=== PATIENT | female | born 1950 | race Caucasian/White ===

== ENCOUNTER 2021-01-24 08:54 | Outpatient (REF) | payer MEDICARE, SELFPAY ==
--- NOTE | ~2021-01-24 | XR_ITS ---
EXAMINATION: AP BILATERAL KNEE AND LEFT KNEE CLINICAL INFORMATION: Pain left knee. COMPARISON: None. TECHNIQUE: AP bilateral knee standing. Left knee 2 views. FINDINGS: AP Bilateral Knee: There is moderate reduction in medial compartment joint space both knees with periarticular spurring. The lateral compartment joint space is maintained normal. No loose bodies, fracture or bony erosive changes seen. Left Knee: There is loss of patellofemoral compartment joint space with moderate periarticular spurring. There is mild suprapatellar joint effusion. XR/XR knee standing BI IMPRESSION: [id number] degenerative changes in the tricompartments left knee with minimal suprapatellar joint effusion. No visible acute fracture, dislocation or subluxation seen.
--- NOTE | ~2021-01-24 | XR_ITS ---
EXAMINATION: AP BILATERAL KNEE AND LEFT KNEE CLINICAL INFORMATION: Pain left knee. COMPARISON: None. TECHNIQUE: AP bilateral knee standing. Left knee 2 views. FINDINGS: AP Bilateral Knee: There is moderate reduction in medial compartment joint space both knees with periarticular spurring. The lateral compartment joint space is maintained normal. No loose bodies, fracture or bony erosive changes seen. Left Knee: There is loss of patellofemoral compartment joint space with moderate periarticular spurring. There is mild suprapatellar joint effusion. XR/XR knee LT 2V IMPRESSION: [id number] degenerative changes in the tricompartments left knee with minimal suprapatellar joint effusion. No visible acute fracture, dislocation or subluxation seen.
== END 2021-01-24 08:55 | disposition home or self-care (01) ==
LOC: HO.HOSX 08:54
PROVIDERS: Visit Provider Orthopaedic Surgery
DX: M17.12 Unilateral primary osteoarthritis, left knee (principal)
CPT/HCPCS: 20610; 73560; 73565; J1040

== ENCOUNTER → 2021-07-24 11:25 | Outpatient (BNVA) | payer MEDICARE, BC, SELFPAY | PROVIDERS: PCP Hospitalist; Visit Provider Orthopaedic Surgery | DX: M17.0 Bilateral primary osteoarthritis of knee (principal) | CPT/HCPCS: 20610; 99212; J1100 ==

== ENCOUNTER 2021-12-28 | Outpatient (REF) | payer MEDICARE, BC, SELFPAY ==
[2021-12-28 12:13] VITALS: BP 116/62; PULSE 62; RESP 16; O2SAT 98; BMI 39.2
--- NOTE | 2021-12-28 12:51 | HO.ANESPROP2 ---
HPI - Anesthesia Eval Consult details Narrative: Rescheduled after cardiology w/u 71yo F for Left Knee Replacement Total PCP clearance pending labs Significant lower extremity edema. Patient says this is chronic but some days are worse than others. No edema noted on physical exam by Orthopedics or PCP. Reviewed with Dr Anderson heath for eval DOSErlin Lucia dairy bacteriologist notified. [facility] Active Problems Active Problems: All Active Problems (Updated 12/28/21 @ 12:44 by Dorita Mo RN) Obesity (BMI 30-39.9) (Acute) Primary osteoarthritis of left knee (Acute) Pre-operative clearance (Acute) Past Medical History Medical History Arm fracture, left Arthritis Edema of both lower extremities Ganglion cyst Hypertension Left knee pain Family History Family History Father Congestive heart failure Family history of problems with anesthesia: No Surgical History Surgical History Hx of colonoscopy Hx of wisdom tooth extraction History of Problems with Anesthesia: No Social History Social History Housing: House Are you a primary direct care specialist to a significant other at home: No Do you presently have visiting nurse or other home services: No Alcohol intake: current Alcohol intake frequency: holidays/special occasions only Alcohol type: beer Patient Tobacco Use Status: Never used Tobacco e-Cigarette/Vaping Use: Never Used service: No Current occupational status: retired Cognitive needs: Yes Hearing needs: No Vision needs: Yes Narrative Narrative: No recent illness No CP/SOB with physical activity, limited Meds Allergies Allergy/AdvReac Type Severity Reaction Status Date / Time No Known Allergies Allergy Verified 01/04/22 09:47 Home Medications Medication Instructions Recorded Confirmed Last Taken Type carvedilol 12.5 mg tablet 12.5 mg PO BID 08/24/20 12/28/21 Unknown History hydrochlorothiazide 25 mg tablet 25 mg PO DAILY 08/24/20 12/28/21 Unknown History lisinopril 20 mg tablet 20 mg PO BID 08/24/20 12/28/21 Unknown History Exam Exam Date and Time: December 28, 2021 1251 Height,Weight and Vital Signs: Height 5 ft 7 in Weight 113.7 kg Last Vital Signs Pulse 62 12/28/21 12:13 Resp 16 12/28/21 12:13 BP 116/62 12/28/21 12:13 Pulse Ox 98 12/28/21 12:13 O2 Del Method 12/28/21 12:13 Pertinent Lab Results Pertinent Lab Results: Lab Results 12/28/21 12/28/21 12/28/21 Range/Units 12:30 13:15 13:15 WBC 8.2 (4.8-10.8) X10*3/uL RBC 4.50 (4.20-5.50) X10*6/uL Hgb 13.9 (12.0-16.0) g/dl Hct 42.5 (37.0-47.0) % MCV 94.4 (80.0-98.0) fL MCH 30.9 (27.0-33.0) pg MCHC 32.7 (31.0-35.0) g/dl RDW 13.3 (11.0-16.0) % Plt Count 267 (160-400) X10*3/uL MPV 10.8 (9.4-12.3) fL Immature Gran % (Auto) 0.2 (0.0-0.4) % Neut % (Auto) 68.1 (45-73) % Lymph % (Auto) 23.8 (20-40) % [place] % (Auto) 6.3 (2-11) % Eos % (Auto) 1.1 (0-4) % Baso % (Auto) 0.5 (0-2) % Lymph # (Auto) 2.0 (1.2-4.9) X10*3/uL [place] # (Auto) 0.5 (0.1-1.2) X10*3/uL Eos # (Auto) 0.1 (0.0-0.4) X10*3/uL Baso # (Auto) 0.0 (0.0-0.2) X10*3/uL Abs Immat Gran (auto) 0.02 (0.00-0.03) X10*3/uL Absolute Neuts (auto) 5.6 (2.0-8.3) x10*3/uL Absolute Nucleated RBC 0.000 (0.0-0.012) X10*3/uL Nucleated RBC % (auto) 0.0 (0.0-0.2) /100WBC Sodium 140 (135-145) mmol/L Potassium 4.5 (3.3-5.1) mmol/L Chloride 104 (96-108) mmol/L Carbon Dioxide 26 (22-29) mmol/L Anion Gap 15 (12-20) BUN 27 H (9-16) mg/dL Creatinine 1.98 H (0.5-1.4) mg/dL Estim Creat Clear Calc 34.9 Estimated GFR 25 Random Glucose 92 (60-115) mg/dL Calcium 10.3 H (8.4-10.2) mg/dL Nasal Screen MRSA (PCR) NEGATIVE (Negative) Nasal S. aureus Screen NEGATIVE (Negative) Nasal MRSA/S.aureus Interp SEE NOTE Blood Type Antibody Screen 12/28/21 Range/Units 13:15 WBC (4.8-10.8) X10*3/uL RBC (4.20-5.50) X10*6/uL Hgb (12.0-16.0) g/dl Hct (37.0-47.0) % MCV (80.0-98.0) fL MCH (27.0-33.0) pg MCHC (31.0-35.0) g/dl RDW (11.0-16.0) % Plt Count (160-400) X10*3/uL MPV (9.4-12.3) fL Immature Gran % (Auto) (0.0-0.4) % Neut % (Auto) (45-73) % Lymph % (Auto) (20-40) % [place]leigh % (Auto) (2-11) % Eos % (Auto) (0-4) % Baso % (Auto) (0-2) % Lymph # (Auto) (1.2-4.9) X10*3/uL [place] # (Auto) (0.1-1.2) X10*3/uL Eos # (Auto) (0.0-0.4) X10*3/uL Baso # (Auto) (0.0-0.2) X10*3/uL Abs Immat Gran (auto) (0.00-0.03) X10*3/uL Absolute Neuts (auto) (2.0-8.3) x10*3/uL Absolute Nucleated RBC (0.0-0.012) X10*3/uL Nucleated RBC % (auto) (0.0-0.2) /100WBC Sodium (135-145) mmol/L Potassium (3.3-5.1) mmol/L Chloride (96-108) mmol/L Carbon Dioxide (22-29) mmol/L Anion Gap (12-20) BUN (9-16) mg/dL Creatinine (0.5-1.4) mg/dL Estim Creat Clear Calc Estimated GFR Random Glucose (60-115) mg/dL Calcium (8.4-10.2) mg/dL Nasal Screen MRSA (PCR) (Negative) Nasal S. aureus Screen (Negative) Nasal MRSA/S.aureus Interp Blood Type AB Negative Antibody Screen NEGATIVE Laboratory Tests 01/04/22 08:30 Sodium 138 Potassium 4.6 Chloride 103 BUN 33 H Creatinine 1.32 Narrative Narrative: EKG 12/2021 SB with SA @ 56 Otherwise normal Airway Mallampati Class: II TM Dist: >3cm Neck ROM: Full Loose/Missing/Broken Teeth: Yes (molars missing) Heart: RRR Lungs: CTAB Assessment and Plan Assessment Anesthesia Assessment: Anesthesia Plan Discussed and PAT Visit Final Anesthetic Review Family History of Problems with Anesthesia: No History of Problems with Anesthesia: No
[2021-12-28 13:57] LABS: Basophils Percent Auto 0.5 % (0-2); Eosinophils Absolute Auto 0.1 X10*3/uL (0.0-0.4); Eosinophils Percent Auto 1.1 % (0-4); Hematocrit 42.5 % (37.0-47.0); Hemoglobin 13.9 g/dl (12.0-16.0); Imm Gran Abs Auto 0.02 X10*3/uL (0.00-0.03); Imm Gran Pct Auto 0.2 % (0.0-0.4); Lymphocytes Percent Auto 23.8 % (20-40); MANUAL DIFF FLAG NO; Mean Corpuscular HGB Conc 32.7 g/dl (31.0-35.0); Mean Corpuscular Hemoglobin 30.9 pg (27.0-33.0); Mean Corpuscular Volume 94.4 fL (80.0-98.0); Mean Platelet Volume 10.8 fL (9.4-12.3); Monocytes Absolute Auto 0.5 X10*3/uL (0.1-1.2); Monocytes Percent Auto 6.3 % (2-11); Neutrophils Absolute Auto 5.6 x10*3/uL (2.0-8.3); Neutrophils Percent Auto 68.1 % (45-73); Platelet Count 267 X10*3/uL (160-400); Red Cell Distribution Width 13.3 % (11.0-16.0); White Blood Count 8.2 X10*3/uL (4.8-10.8)
[2021-12-28 14:22] LABS: Anion Gap 15 (12-20); Blood Urea Nitrogen 27 mg/dL (9-16); Calcium 10.3 mg/dL (8.4-10.2); Carbon Dioxide 26 mmol/L (22-29); Chloride 104 mmol/L (96-108); Creatinine Clr Calc Pharmacy 34.9; Estimated Glomerular Filt Rate 25; Glucose Random 92 mg/dL (60-115); Potassium 4.5 mmol/L (3.3-5.1); Sodium 140 mmol/L (135-145)
[2021-12-28 14:48] LABS: MRSA Nasal PCR NEGATIVE (Negative); SA Nasal PCR NEGATIVE (Negative)
== END 2021-12-28 00:01 | disposition home or self-care (01) ==
LOC: HO.PAT
PROVIDERS: Physician Assistant; PCP Hospitalist; Visit Provider Orthopaedic Surgery
DX: Z01.818 Encounter for other preprocedural examination (principal); M17.12 Unilateral primary osteoarthritis, left knee
CPT/HCPCS: 36415; 80048; 85025; 86850; 86900; 86901; 87640; 87641

== ENCOUNTER 2022-01-04 08:26 | Outpatient (REF) | payer MEDICARE, BC, SELFPAY ==
[2022-01-04 12:06] LABS: Anion Gap 14 (12-20); Blood Urea Nitrogen 33 mg/dL (9-16); Calcium 10.1 mg/dL (8.4-10.2); Carbon Dioxide 26 mmol/L (22-29); Chloride 103 mmol/L (96-108); Estimated Glomerular Filt Rate 40; Glucose Random 102 mg/dL (60-115); Potassium 4.6 mmol/L (3.3-5.1); Sodium 138 mmol/L (135-145)
== END 2022-01-04 08:27 | disposition home or self-care (01) ==
LOC: HO.WFDLDS 08:26
PROVIDERS: Visit Provider Hospitalist
DX: Z01.818 Encounter for other preprocedural examination (principal); M17.12 Unilateral primary osteoarthritis, left knee; R79.89 Other specified abnormal findings of blood chemistry
CPT/HCPCS: 36415; 80048; 99212

== ENCOUNTER → 2022-01-24 08:50 | Outpatient (BNVA) | payer MEDICARE, BC, SELFPAY | PROVIDERS: PCP Hospitalist; Visit Provider Internal Medicine Cardiovascular Disease | DX: Z01.810 Encounter for preprocedural cardiovascular examination (principal); I10 Essential (primary) hypertension | CPT/HCPCS: 99202 ==

== ENCOUNTER → 2022-01-25 10:17 | Outpatient (REF) | payer MEDICARE, BC, SELFPAY ==
--- NOTE | 2022-01-25 10:21 | CA_ITS ---
Transthoracic Echocardiogram Patient (Last, First, Middle): April Cunningham M Gender: Female Date of : 1950 Age: 71 Procedure Date: 01/25/2022 Procedure Type: Transthoracic Echocardiogram Location: OP Height: 170.18 cm Weight: 113.4 kg BSA: 2.22 m2 Heart Rate: bpm BP: 110 / 70 mmHg Linoleum Mechanic: SONA Referring MD: Drake Hutchinson MD Airplane Patrol Pilot: Drake Hutchinson MD Symptoms: Z01.810 - Encounter for preprocedural cardiovascular examination Study Quality: Fair ECG Rhythm: Sinus Conclusions: - 1. Normal LV systolic function with grade 1 diastolic dysfunction 2. Normal cardiac valvular Doppler 3. No gross pericardial effusion Findings Left Ventricle Normal left ventricular size, thickness, and systolic function. The visually estimated ejection fraction is between 60-65%. Regional wall motion abnormalities can not be excluded due to suboptimal endocardial definition. Spectral Doppler is indicative of an impaired relaxation filling pattern. E/E prime ratio is <8, consistent with normal filling pressures. Evidence suggests grade I (mild) diastolic dysfunction. Right Ventricle Normal right ventricular cavity size. There is normal right ventricular systolic function. Atria The left atrium is normal in size. Interatrial shunt cannot be excluded. The right atrium was not well visualized. Aortic Valve The aortic valve structure and function is likely normal. There is no aortic valve stenosis. There is no aortic valve regurgitation. Mitral Valve There is mild anterior mitral leaflet thickening. There is mild mitral annular calcification. There is trace mitral valve regurgitation. There is no mitral valve stenosis. Pulmonic Valve The pulmonic valve was not well visualized. Tricuspid Valve The tricuspid valve was not well visualized. Tricuspid regurgitation envelope is inadequate for calculation of right ventricular systolic pressure. Normal right atrial pressure. Great Vessels All visible segments of the aorta are normal in size. The pulmonary artery was not well visualized. Venous The inferior vena cava is normal in size and collapses greater than 50% with inspiration. Pericardium/Pleural There is no evidence of pericardial effusion. Prior Study Comparison No prior study available for comparison. Measurements 2D Linear Measurements IVSd: 1.03 0.6-0.9/0.6-1.0 cm LVIDd: 4.07 3.9-5.3/4.2-5.9 cm LVIDd Index: 1.83 2.4-3.2/2.2-3.1 cm/m2 LVIDs: 2.61 2.0-3.6 cm LVPWd: 1.13 0.7-1.1 cm LA Diam: 2.90 2.7-3.8/3.0-4.0 cm LAIDs Index: 1.31 1.5-2.3 cm/m2 LV Mass: 181.36 67-162/88-224 g LV Mass Index: 81.69 43-95/49-115 g/m2 LVOT Diam: 2.10 3.0+(-)1.3 cm 2D Systolic Function EF 4C: 57.90 >55% EF 2C: 61.70 >55% EF BiP: 60.10 >55% Mitral Valve MV Pk E: 0.58 MV PK A: 0.82 MV Decel Time: 369.00 E/A: 0.70 E'Lateral: 9.90 E'Medial: 6.85 E/E' Med: 8.50 E/E' Lat: 5.90 PHT: 108.00 MVA PHT: 2.04 Decel [place]: 1.58 Aortic Valve AoV Pk Genaro: 1.29 AoV Mn Genaro: 0.85 AoV VTI: 0.33 AoV Pk Grad: 7.00 Aov Mn Grad: 3.00 TAQUERIA Cont.VTI: 2.59 LVOT LVOT Pk Genaro: 1.14 LVOT Mn Genaro: 0.65 LVOT VTI: 0.24 LVOT Pk Grad: 5.00 LVOT Mn Grad: 2.00 LVOT Diam: 2.10 LVOT Area: 3.46 Diastolic Function MV Pk E: 0.58 MV Pk A: 0.82 E/A: 0.70 E'Medial: 6.85 E/E' Med: 8.50 E' Laterial: 9.90 E/E' Lat: 5.90 Right Ventricle TAPSE (mm): 26.70 TVS' Genaro: 13.50 Tricuspid Valve RA Press: 3.00 Great Vessels Aorta Sinus of Valsalva: 3.28 2.0-3.[address] [place]: 3.12 1.7-3.4 cm Ao Asc: 3.20 2.1-3.4 cm Updated in Other Vendor System with Status of Final Drake Hutchinson MD electronically signed on 01/25/2022 2:51:27 PM with status of Final
== END ==
LOC: HO.CARD 10:17
PROVIDERS: PCP Hospitalist; Visit Provider Internal Medicine Cardiovascular Disease
DX: Z01.810 Encounter for preprocedural cardiovascular examination (principal)
CPT/HCPCS: 93306

== ENCOUNTER → 2022-01-29 14:25 | Outpatient (BNVA) | payer MEDICARE, BC, SELFPAY | PROVIDERS: PCP Hospitalist; Visit Provider Physician Assistant | DX: M54.16 Radiculopathy, lumbar region (principal); M17.12 Unilateral primary osteoarthritis, left knee | CPT/HCPCS: 99212 ==

== ENCOUNTER → 2022-01-30 09:38 | Outpatient (REF) | payer MEDICARE, BC, SELFPAY ==
--- NOTE | ~2022-01-30 | NM_ITS ---
Lexiscan Myocardial perfusion study Indication: Preoperative cardiovascular evaluation Technique: The patient was brought in for a Lexiscan perfusion study on 01/30/2022 and was injected 0.4 mg of Lexiscan intravenously. Within a minute of this injection 40 mCi of sestamibi was given intravenously. Images were obtained using the SPECT gamma camera interlaced with the gating device. Images were obtained in supine position. Resting perfusion study was performed on 01/31/2022. Patient was administered 40 mCi of sestamibi intravenously at rest. Images were then obtained in supine position. Total DLP 134mGy-cm. Images were processed with the software and compared side to side in short axis, horizontal long axis and vertical long axis views. Findings: Raw acquisition reviewed. The stress perfusion study showed no significant perfusion abnormality. Both uncorrected as well as CT attenuation corrected images were reviewed. The gated study shows normal LV systolic function with calculated LVEF of 63%. LV cavity is normal in size. The gated study shows normal wall thickening and contraction of segments. Resting study shows no significant perfusion abnormality. Gating at rest reveals normal wall motion with ejection fraction at 73%. The findings are consistent with no reversible or fixed perfusion abnormality. NM/NM eliezer perf SPECT rest & str Impression: 1. Myocardial perfusion imaging study shows normal myocardial perfusion. No evidence of any ischemia or infarction. 2. Gated LVEF is 63% during stress and 73% during rest. 3. Transient ischemic dilatation not present. EKG component of the test reported separately.
--- NOTE | 2022-01-30 09:41 | CA_ITS ---
Acquisition Time: 2022-01-30 09:55:15 Total Exercise Time: 00:02:00 Test Indications: Z01.810 PRE OP Medications: SEE H Protocol: LEXISCAN Max HR: 094 BPM 62% of Pred: 151 BPM Max BP: 128/070 mmHG Max Work Load: 1.0 METS Pharmacological stress test with Lexiscan injection, while sitting and kicking her legs, without anginal symptoms, without arrythmia, with normotensive response to injection, with nondiagnostic EKG for ischemia. In recovery she reported lightheadedness that was treated with Aminophylline 75mg IVP to reverse Lexiscan with resolution of symptom. Nuclear images pending. Test reviewed with Dr Pradhan. Referred By: Drake Hutchinson Overread By: MARITO FARIAS
== END ==
LOC: HO.CARD 09:38
PROVIDERS: Visit Provider Internal Medicine Cardiovascular Disease
DX: Z01.810 Encounter for preprocedural cardiovascular examination (principal)
CPT/HCPCS: 78452; 93017; A9500; J0280; J2785

== ENCOUNTER → 2022-02-07 13:43 | Outpatient (BNVA) | payer MEDICARE, BC, SELFPAY | PROVIDERS: PCP Hospitalist; Referring Provider Hospitalist; Visit Provider Internal Medicine Cardiovascular Disease | DX: Z01.810 Encounter for preprocedural cardiovascular examination (principal); I10 Essential (primary) hypertension | CPT/HCPCS: 99212 ==

== ENCOUNTER 2022-02-20 10:00 | Outpatient (RCR) | payer MEDICARE, BC, SELFPAY | END 2022-03-13 09:31 | disposition home or self-care (01) | LOC: HO.PTWFD 10:00 | PROVIDERS: PCP Hospitalist; Visit Provider Orthopaedic Surgery | DX: M17.12 Unilateral primary osteoarthritis, left knee (principal) | CPT/HCPCS: 97110; 97116; 97140; 97161; 97530; 97535 ==

== ENCOUNTER 2022-02-22 08:37 | Outpatient (REF) | payer MEDICARE, BC, SELFPAY ==
--- NOTE | ~2022-02-22 | XR_ITS ---
EXAMINATION: XR STANDING AP KNEES XR KNEE, LEFT CLINICAL INFORMATION: M25.562 - Pain in left knee COMPARISON: Standing AP knees and left knee radiographs 01/24/2021. TECHNIQUE: Standing AP view of both knees is performed. Left knee is also imaged in lateral and axial patella views. FINDINGS: Right: There are osteoarthritic changes medial and lateral knee joint compartments with joint narrowing and osteophytes from the femoral condyles plateau. No erosive changes or chondrocalcinosis. No destructive process. Borderline progression since prior imaging. Left: Tricompartment osteoarthritis, greatest medial knee joint compartment with marked medial knee joint narrowing and subchondral sclerosis, osteophytes, and secondary genu varus. No visible erosive change or definite chondrocalcinosis. There is some trace thickening suprapatellar bursa. No overt effusion. Hoffa's fat pad appears normal. Mild lateral tilting patella. No lateralization patella. Mild progression since prior imaging. XR/XR knee standing BI IMPRESSION: Right: -Osteoarthritis medial lateral compartments. No erosive changes. Left: -Tricompartment osteoarthritis, severe medial compartment. Secondary genu varus -Mild lateral patellar tilting.
--- NOTE | ~2022-02-22 | XR_ITS ---
EXAMINATION: XR STANDING AP KNEES XR KNEE, LEFT CLINICAL INFORMATION: M25.562 - Pain in left knee COMPARISON: Standing AP knees and left knee radiographs 01/24/2021. TECHNIQUE: Standing AP view of both knees is performed. Left knee is also imaged in lateral and axial patella views. FINDINGS: Right: There are osteoarthritic changes medial and lateral knee joint compartments with joint narrowing and osteophytes from the femoral condyles plateau. No erosive changes or chondrocalcinosis. No destructive process. Borderline progression since prior imaging. Left: Tricompartment osteoarthritis, greatest medial knee joint compartment with marked medial knee joint narrowing and subchondral sclerosis, osteophytes, and secondary genu varus. No visible erosive change or definite chondrocalcinosis. There is some trace thickening suprapatellar bursa. No overt effusion. Hoffa's fat pad appears normal. Mild lateral tilting patella. No lateralization patella. Mild progression since prior imaging. XR/XR knee LT 2V IMPRESSION: Right: -Osteoarthritis medial lateral compartments. No erosive changes. Left: -Tricompartment osteoarthritis, severe medial compartment. Secondary genu varus -Mild lateral patellar tilting.
== END 2022-02-22 08:38 | disposition home or self-care (01) ==
LOC: HO.HOSX 08:37
PROVIDERS: Visit Provider Physician Assistant
DX: M17.12 Unilateral primary osteoarthritis, left knee (principal); M25.561 Pain in right knee
CPT/HCPCS: 73560; 73565; 99212

== ENCOUNTER 2022-02-27 07:49 | Inpatient (IN) | payer MEDICARE, SELFPAY ==
[2022-02-16 13:52] VITALS: BP 137/68; PULSE 60; RESP 16; O2SAT 100; BMI 38.5
[2022-02-16 15:37] LABS: Hematocrit 42.8 % (37.0-47.0); Hemoglobin 14.1 g/dl (12.0-16.0); Mean Corpuscular HGB Conc 32.9 g/dl (31.0-35.0); Mean Corpuscular Hemoglobin 30.7 pg (27.0-33.0); Mean Platelet Volume 10.7 fL (9.4-12.3); Platelet Count 248 X10*3/uL (160-400); Red Cell Distribution Width 12.5 % (11.0-16.0); White Blood Count 9.2 X10*3/uL (4.8-10.8)
[2022-02-16 16:08] LABS: MRSA Nasal PCR NEGATIVE (Negative); SA Nasal PCR NEGATIVE (Negative)
[2022-02-16 16:15] LABS: Anion Gap 19 (12-20); Blood Urea Nitrogen 34 mg/dL (9-16); Calcium 10.6 mg/dL (8.4-10.2); Carbon Dioxide 23 mmol/L (22-29); Chloride 103 mmol/L (96-108); Creatinine Clr Calc Pharmacy 47.4; Estimated Glomerular Filt Rate 36; Glucose Random 94 mg/dL (60-115); Potassium 4.8 mmol/L (3.3-5.1); Sodium 140 mmol/L (135-145)
--- NOTE | 2022-02-22 13:47 | HO.ANESPROP2 ---
Documented by User: Kindra Singer NP 02/22/22 14:03 HPI - Anesthesia Eval Consult details Narrative: 71yo F for Left Knee Replacement Total Cx'd 01/2022 r/t to LE swelling. PCP defers to cardiology for clearance. Cleared by cardiology [facility] Active Problems Active Problems: All Active Problems (Updated 02/16/22 @ 14:22 by Dorita Mo, RN) Obesity (BMI 30-39.9) (Acute) Primary osteoarthritis of left knee (Acute) Pre-operative clearance (Acute) Elevated serum creatinine (Acute) Preoperative cardiovascular examination (Acute) Lumbar radiculopathy (Acute) Hypertension (Acute) Past Medical History Medical History Arm fracture, left Arthritis Dislocated shoulder Edema of both lower extremities Ganglion cyst Hypertension Left knee pain Family History Family History Father Congestive heart failure Family history of problems with anesthesia: No Surgical History Surgical History Hx of colonoscopy Hx of wisdom tooth extraction History of Problems with Anesthesia: No Social History Social History Household Members Other:: son age 34 Housing: House Are you a primary career manager to a significant other at home: No Do you presently have visiting nurse or other home services: No Alcohol intake: current Alcohol intake frequency: holidays/special occasions only Alcohol type: beer Patient Tobacco Use Status: Never used Tobacco e-Cigarette/Vaping Use: Never Used Use of substances other than those prescribed or required for medical reasons: No Have you been hit, kicked, punched, or otherwise hurt by someone within the past year? If so, by whom?: No Spiritual Healthcare Practices: none Baptism Healthcare Practices: none Cultural Healthcare Practices: none Are you DNR?: No Advance Directives: No Advance Directives Information Provided: Yes Advance Directives on File: No Recently lost weight without trying: No Nutrition Risks: No Nutritional Risk service: No Current occupational status: retired Cognitive needs: Yes Hearing needs: No Vision needs: Yes Meds Allergies Allergy/AdvReac Type Severity Reaction Status Date / Time No Known Allergies Allergy Verified 02/27/22 07:57 Home Medications Medication Instructions Recorded Confirmed Last Taken Type carvedilol 12.5 mg tablet 12.5 mg PO BID 08/24/20 02/27/22 02/27/22 History hydrochlorothiazide 25 mg tablet 25 mg PO DAILY 08/24/20 02/22/22 Unknown History lisinopril 20 mg tablet 20 mg PO BID 08/24/20 02/22/22 Unknown History tramadol 50 mg tablet 25 mg PO BEDTIME PRN Pain 02/07/22 02/22/22 Unknown History Exam Exam Date and Time: February 22, 2022 1347 Height,Weight and Vital Signs: Height 5 ft 7 in Weight 111.584 kg Last Vital Signs Pulse 60 02/16/22 13:52 Resp 16 02/16/22 13:52 BP 137/68 02/16/22 13:52 Pulse Ox 100 02/16/22 13:52 O2 Del Method 02/16/22 13:52 Pertinent Lab Results Pertinent Lab Results: Laboratory Tests 02/16/22 02/16/22 02/16/22 14:23 14:50 15:01 WBC 9.2 RBC 4.60 Hgb 14.1 Hct 42.8 MCV 93.0 MCH 30.7 MCHC 32.9 RDW 12.5 Plt Count 248 MPV 10.7 Absolute Nucleated RBC 0.000 Nucleated RBC % (auto) 0.0 Sodium Potassium Chloride Carbon Dioxide Anion Gap BUN Creatinine Estim Creat Clear Calc Estimated GFR Random Glucose Calcium Nasal Screen MRSA (PCR) NEGATIVE Nasal S. aureus Screen NEGATIVE Nasal MRSA/S.aureus Interp SEE NOTE Blood Type AB Negative Antibody Screen NEGATIVE 02/16/22 15:01 WBC RBC Hgb Hct MCV MCH MCHC RDW Plt Count MPV Absolute Nucleated RBC Nucleated RBC % (auto) Sodium 140 Potassium 4.8 Chloride 103 Carbon Dioxide 23 Anion Gap 19 BUN 34 H Creatinine 1.44 H Estim Creat Clear Calc 47.4 Estimated GFR 36 Random Glucose 94 Calcium 10.6 H Nasal Screen MRSA (PCR) Nasal S. aureus Screen Nasal MRSA/S.aureus Interp Blood Type Antibody Screen Narrative Narrative: EKG 12/2021 SB with SA @ 56 Otherwise normal Assessment and Plan Assessment Anesthesia Assessment: Chart Reviewed Final Anesthetic Review Family History of Problems with Anesthesia: No History of Problems with Anesthesia: No Documented by User: Babatunde Lopez MD 02/27/22 11:23 PMFSH Past Medical History Medical History Arm fracture, left Arthritis Dislocated shoulder Edema of both lower extremities Ganglion cyst Hypertension Left knee pain Family History Family History Father Congestive heart failure Surgical History Surgical History Hx of colonoscopy Hx of wisdom tooth extraction Social History Social History Household Members Other:: son age 34 Housing: House Are you a primary career manager to a significant other at home: No Do you presently have visiting nurse or other home services: No Alcohol intake: current Alcohol intake frequency: holidays/special occasions only Alcohol type: beer Patient Tobacco Use Status: Never used Tobacco e-Cigarette/Vaping Use: Never Used Use of substances other than those prescribed or required for medical reasons: No Have you been hit, kicked, punched, or otherwise hurt by someone within the past year? If so, by whom?: No Spiritual Healthcare Practices: none Baptism Healthcare Practices: none Cultural Healthcare Practices: none Are you DNR?: No Advance Directives: No Advance Directives Information Provided: Yes Advance Directives on File: No Recently lost weight without trying: No Nutrition Risks: No Nutritional Risk service: No Current occupational status: retired Cognitive needs: Yes Hearing needs: No Vision needs: Yes Meds Allergies Allergy/AdvReac Type Severity Reaction Status Date / Time No Known Allergies Allergy Verified 02/27/22 07:57 Home Medications Medication Instructions Recorded Confirmed Last Taken Type carvedilol 12.5 mg tablet 12.5 mg PO BID 08/24/20 02/27/22 02/27/22 History hydrochlorothiazide 25 mg tablet 25 mg PO DAILY 08/24/20 02/22/22 Unknown History lisinopril 20 mg tablet 20 mg PO BID 08/24/20 02/22/22 Unknown History tramadol 50 mg tablet 25 mg PO BEDTIME PRN Pain 02/07/22 02/22/22 Unknown History Exam Airway Mallampati Class: II TM Dist: >3cm Neck ROM: Full Loose/Missing/Broken Teeth: Yes Assessment and Plan Assessment Anesthesia Assessment: Anesthesia Plan Discussed Final Anesthetic Review NPO: Yes ASA Class: III Final Preanesthetic Review: No Changes in Pt Med Stat, Meds/Allgs Chart Reviewed, Consent Obtained/Reviewed and Anes Risks/Benef Reviewed Patient Risk: Intermediate Procedure Risk: Intermediate Anesthetic Plan Anesthetic Plan: MAC:, Spinal and Regional Block Disposition: Standard PACU
[2022-02-27] VITALS (18 sets, daily range): BP systolic 88–145; BP diastolic 38–73; PULSE 42–69; RESP 16–20; TEMP 36–36.9; O2SAT 95–100
--- NOTE | ~2022-02-27 | XR_ITS ---
EXAMINATION: XR KNEE, LEFT CLINICAL INFORMATION: Status post total knee arthroplasty COMPARISON: 02/22/2022 TECHNIQUE: Two views of the left knee. FINDINGS: Postoperative changes from total knee arthroplasty. Hardware components appear well-seated and in anatomic alignment. There is associated soft tissue swelling, soft tissue gas, and anterior skin reyna. No acute fracture is seen. XR/XR knee LT 2V IMPRESSION: Status post total knee arthroplasty with expected postoperative changes.
--- NOTE | 2022-02-27 07:55 | PHA.MEDREC ---
Pharmacy Consult ? Medication Reconciliation Pharmacy has completed the medication reconciliation. Reviewed med rec done by nursing
[2022-02-27 08:07] LABS: COVID-19 Test Negative (Negative); IDNOW Serial# 16C4AD1C
[2022-02-27] MEDS: Lactated Ringers 1,000 ML 100 ML IVCONT ×3 (08:08→20:46)
[2022-02-27 08:58] LABS: Hemoglobin 13.4 g/dl (12.0-16.0)
--- NOTE | 2022-02-27 09:39 | MHC.SHP ---
Pre-Procedural Eval Section A Date of Service: 02/27/22 The patient is an INPATIENT: No Changes since office visit: Yes Patient answered all questions; No Cold of Flu in the past 2 weeks, No New Medical Problems and No Changes in Medication The History & Physical has been completed within 30 days and I have reviewed it.: Yes Section B Chief Complaint: LT TKA Allergies: Allergies Allergy/AdvReac Type Severity Reaction Status Date / Time No Known Allergies Allergy Verified 02/27/22 07:57 Plan I have reviewed the history and physical and performed a pertinent physical examination on my patient. No changes have occurred unless specified.
--- NOTE | 2022-02-27 11:38 | P.BOP_ITS ---
Brief Operative Note Date of Service: 02/27/22 Pre-op diagnosis: Left knee OA Post-op diagnosis: same Procedure: Left TKA Implants: [employer]athal[employer] cemented posterior stabilized 08/11/18 Surgeon: Sukh Jade MD Anesthesia: regional and spinal Was an Human Resources Benefits Assistant used for this Procedure?: Yes Human Resources Benefits Assistant: Jeronimo Molina Estimated blood loss (mL): 250 Tourniquet time (min): 0 IV fluids (mL): 1,000 Pathology: other Condition: stable Disposition: PACU
--- NOTE | 2022-02-27 11:39 | W.PM.OPN ---
Operative Note Operative Note Date of Service: 02/27/22 Narrative: Date of Service: 02/27/22 Pre-op diagnosis: Left knee OA Post-op diagnosis: same Procedure: Left TKA Implants: Valier Triathalon cemented posterior stabilized 08/11/TS/32a Surgeon: Sukh Jade MD Anesthesia: regional and spinal Was an Charge Master Specialist used for this Procedure?: Yes Charge Master Specialist: Jeronimo Molina Estimated blood loss (mL): 250 Tourniquet time (min): 0 IV fluids (mL): 1,000 Pathology: other Condition: stable Disposition: PACU Procedure in detail: The patient was brought to the operating room and prepped and draped in standard sterile fashion. A time-out was called to identify proper site proper procedure proper surgeon and IV antibiotics were administered. 1 g of IV tranexamic acid was administered. I began by making a midline incision to the retinaculum and performed a medial parapatellar arthrotomy. The patella was translated laterally and the knee was flexed up. There was severe eburnation of the medial compartment and varus alignement. I performed a small medial peel and resected the infrapatellar fat pad. Villas's line was then used to drill my intramedullary femoral guide and my distal femur cut of 10mm was made in 5 degrees of valgus while protecting the soft tissues. I then measured a # 3 femur and placed my cutting guide and made my anterior posterior and chamfer cuts protecting the soft tissues at all times. I then made my box but removing the PCL. Once I was satisfied with my cuts I turned my attention to the tibia. I removed the meniscus medially and laterally and , using an external cutting guide, in line with the tibial crest and the third ray, I made my distal tibial cut in 0 deg slope of while protecting the posterior soft tissues at all times. An extension block was used to confirm appropriate amount of bony resection. I then sized a #4 tibia and once I was satisfied that there was complete tibial coverage I placed my trial and with the trial femur in place took the knee through range of motion. I was satisfied with the extension and flexion as well as the stability and balance at 0, 30 and 90 degrees. I then turned my attention to the patella where I removed 1 cm from the undersurface of the patella and then trialed a 32a patellar button. Again the knee was taken through range of motion I was satisfied with the tracking. I then returned to the femur and drilled my femoral lug holes and prepared the tibia. A femoral bone plug was placed and the knee was irrigated copiously. I then cemented the patella, tibia and femur in standard fashion while applying axial compression. Once the cement was dry, all excess cement was removed and I trialed different inserts until I selected a # 19TS insert. The final insert was placed and a 3 minutes iodine soak with local TXA was performed. A Werewolf cautery wand was used to maintain hemostasis over the capsule and meniscal beds, the gutters and peripatellar soft tissues. The knee was then closed with a running Quill suture, a 3 0 Vicryl and reyna on the skin. Patient was then placed in sterile dressing and brought to recovery room in stable condition there were no known complications.
[2022-02-27] MEDS: HYDROmorphone HCl 0.5 MG/0.5 ML SYRINGE IVPUSH ×2 (14:55→16:10)
[2022-02-27] MEDS: oxyCODONE HCl Immed Release 5 MG TABLET PO (15:04)
[2022-02-27] MEDS: ceFAZolin Sodium/Dextrose,Iso 2 GM/50 ML PIGGYBACK IV (15:54)
--- NOTE | 2022-02-27 19:52 | HO.PM.IMCN ---
History of Present Illness Data of Consult Service Date: 02/27/22 Primary Care Provider: Unknown Physician HPI This is a 71 yo F with hx of HTN , CKD and osteoarthritis s/p TKA of the left. we are asked to this pt In regards to her CKD. Patient reports no current acute issues, she denies any headache, no change in vision, no chest pain or shortness of breath, no abdominal pain nausea and vomiting, no diarrhea constipation, no urinary symptoms. She reports slight discomfort in her left knee post surgery but at this time her pain is well controlled. Denies any fever at this time. She reports that prior to surgery she was seen by her electric installer as well as the sisal operator regarding swelling on her right leg attributed to Diflucan act. She reports no changes to her medications and compliance with her antihypertensives. And has a close follow-up with her electric installer. Labs were ordered by me show no change in her creatinine or BUN with no change in GFR. Review of Systems Review of Systems: Yes all other systems are reviewed and are negative [facility] Medical History Arm fracture, left Arthritis Dislocated shoulder Edema of both lower extremities Ganglion cyst Hypertension Left knee pain Family History Father Congestive heart failure Surgical History Hx of colonoscopy Hx of wisdom tooth extraction Social History Household Members Other:: son age 34 Housing: House Are you a primary pet care technician to a significant other at home: No Do you presently have visiting nurse or other home services: No Alcohol intake: current Alcohol intake frequency: holidays/special occasions only Alcohol type: beer Patient Tobacco Use Status: Never used Tobacco e-Cigarette/Vaping Use: Never Used Use of substances other than those prescribed or required for medical reasons: No Currently Displaying Signs/Symptoms of Drug Intoxication Withdrawal: No Have you been hit, kicked, punched, or otherwise hurt by someone within the past year? If so, by whom?: No Spiritual Healthcare Practices: none Congregation Healthcare Practices: none Cultural Healthcare Practices: none Are you DNR?: No Advance Directives: No Advance Directives Information Provided: Yes Advance Directives on File: No Recently lost weight without trying: No Nutrition Risks: No Nutritional Risk service: No Current occupational status: retired Cognitive needs: Yes Hearing needs: No Vision needs: Yes Meds Allergies Allergy/AdvReac Type Severity Reaction Status Date / Time No Known Allergies Allergy Verified 02/27/22 07:57 Active Medications: Current Medications Acetaminophen (Acetaminophen 325 Mg Tablet) 650 mg PO Q6H PRN PRN Reason: Pain, Mild (Pain Scale 1-3) Carvedilol (Carvedilol 12.5 Mg Tablet) 12.5 mg PO BID [facility]; Protocol Docusate Sodium (Docusate Sodium 100 Mg Capsule) 100 mg PO BID [facility] Hydrochlorothiazide (Hydrochlorothiazide 25 Mg Tablet) 25 mg PO DAILY [facility]; Protocol Hydromorphone HCl (Hydromorphone Hcl 0.5 Mg/0.5 Ml Syringe) 0.25 mg IVPUSH Q4H PRN; Protocol PRN Reason: Pain, Severe (Pain Scale 7-10) Lactated Ringer's (Lr) 1,000 mls @ 100 mls/hr IVCONT .Q10H [facility] Stop: 02/28/22 12:53 Last Admin: 02/27/22 13:08 Dose: 100 mls/hr Lisinopril (Lisinopril 20 Mg Tablet) 20 mg PO BID [facility]; Protocol Ondansetron HCl (Ondansetron Hcl 4 Mg/2 Ml Vial) 4 mg IVPUSH Q8H PRN PRN Reason: Nausea and Vomiting Oxycodone HCl (Oxycodone Hcl Immed Release 5 Mg Tablet) 10 mg PO Q4H PRN PRN Reason: Pain, Moderate (Pain Scale 4-6 Oxycodone HCl (Oxycodone Hcl Er 10 Mg Tab.Er.12h) 20 mg PO BID [facility] Sodium Chloride (0.9 % Sodium Chloride Flush 3 Ml Syringe) 3 ml IVFLUSH QSHIFT [facility] Last Admin: 02/27/22 19:18 Dose: Not Given Home Medications Medication Instructions Recorded Confirmed Last Taken Type carvedilol 12.5 mg tablet 12.5 mg PO BID 08/24/20 02/27/22 02/27/22 History hydrochlorothiazide 25 mg tablet 25 mg PO DAILY 08/24/20 02/27/22 Unknown History lisinopril 20 mg tablet 20 mg PO BID 08/24/20 02/27/22 Unknown History tramadol 50 mg tablet 25 mg PO BEDTIME PRN Pain 02/07/22 02/27/22 Unknown History Physical Exam Vital Signs and Narrative: Vital Signs: Last Vital Signs Temp 97.8 F 02/27/22 16:23 Pulse 58 02/27/22 16:40 Resp 20 02/27/22 18:00 BP 138/57 L 02/27/22 16:40 Pulse Ox 97 02/27/22 16:40 O2 Del Method 02/27/22 16:40 BMI result Body Mass Index 38.5 Const: General: cooperative and no acute distress Orientation/consciousness: patient oriented x3 Eyes: General: appearance normal, both eyes and all related structures Resp: Effort & Inspection: normal respiratory effort Auscultation: clear to auscultation bilaterally Cardio: Rate: regular rate Rhythm: regular rhythm GI: Palpation (GI): Soft to palpation Auscultation: normal bowel sounds Skin: General skin exam: no rashes or lesions noted Neuro: General: patient oriented x3 Cognition (Neuro): normal cognition Extrem: Other: Left knee in Dharmesh wrapped Results Labs CBC and Chem 7: 02/27/22 08:08 02/27/22 19:33 Labs: Laboratory Results - last 24 hr 02/27/22 07:50 COVID-19 (ANALI) Negative COVID-19 Clin Com See Note Imaging Radiologist's Impressions: Impressions Knee X-Ray 02/27/22 12:07 IMPRESSION: Status post total knee arthroplasty with expected postoperative changes. Assessment and Plan (1) CKD (chronic kidney disease), stage III: Status: Acute (2) Status post left knee replacement: Status: Acute (3) Hypertension: Qualifiers: Hypertension type: essential hypertension Qualified Code(s): I10 - Essential (primary) hypertension Status: Acute Plan 71-year-old female with past medical history of CKD, HTN, osteoarthritis, status post left TKA pod 0, we are asked to see this patient in management of her CKD # CKD - no acute changes to her creatinine or BUN and both are at baseline - continue her home antihypertensives - continue to follow-up outpatient with electric installer # HTN - stable - recommend resumption of her home antihypertensives # status post left knee replacement - management per orthopedic team thank you for this consult, this time will sign off
[2022-02-27 20:01] LABS: Anion Gap 16 (12-20); Blood Urea Nitrogen 33 mg/dL (9-16); Calcium 9.4 mg/dL (8.4-10.2); Carbon Dioxide 21 mmol/L (22-29); Chloride 104 mmol/L (96-108); Creatinine Clr Calc Pharmacy 47.4; Estimated Glomerular Filt Rate 36; Glucose Random 227 mg/dL (60-115); Potassium 4.2 mmol/L (3.3-5.1); Sodium 137 mmol/L (135-145)
[2022-02-27] MEDS: carvediloL 12.5 MG TABLET PO (20:31)
[2022-02-27] MEDS: Docusate Sodium 100 MG CAPSULE PO (20:31)
[2022-02-27] MEDS: oxyCODONE HCl ER 10 MG TAB.ER.12H 20 MG PO (20:32)
[2022-02-27] MEDS: lisinopriL 20 MG TABLET PO (20:32)
[2022-02-27] MEDS: 0.9 % Sodium Chloride Flush 3 ML SYRINGE IVFLUSH (20:50)
[2022-02-27] MEDS: oxyCODONE HCl Immed Release 5 MG TABLET 10 MG PO (23:11)
[2022-02-27] MEDS: Acetaminophen 325 MG TABLET 650 MG PO (23:12)
[2022-02-28] MEDS: Lactated Ringers 1,000 ML 100 ML IVCONT (05:34)
[2022-02-28] MEDS: Acetaminophen 325 MG TABLET 650 MG PO (06:24)
[2022-02-28 06:58] LABS: MANUAL DIFF FLAG NO
[2022-02-28 07:04] LABS: Basophils Percent Auto 0.1 % (0-2); Eosinophils Percent Auto 0.1 % (0-4); Hematocrit 33.1 % (37.0-47.0); Imm Gran Abs Auto 0.05 X10*3/uL (0.00-0.03); Imm Gran Pct Auto 0.4 % (0.0-0.4); Lymphocytes Absolute Auto 1.3 X10*3/uL (1.2-4.9); Lymphocytes Percent Auto 10.9 % (20-40); Mean Corpuscular HGB Conc 33.2 g/dl (31.0-35.0); Mean Corpuscular Hemoglobin 30.9 pg (27.0-33.0); Mean Platelet Volume 10.9 fL (9.4-12.3); Monocytes Absolute Auto 0.8 X10*3/uL (0.1-1.2); Monocytes Percent Auto 6.5 % (2-11); Neutrophils Absolute Auto 9.8 x10*3/uL (2.0-8.3); Platelet Count 176 X10*3/uL (160-400); Red Blood Count 3.56 X10*6/uL (4.20-5.50); Red Cell Distribution Width 12.5 % (11.0-16.0)
[2022-02-28 07:27] LABS: Anion Gap 18 (12-20); Blood Urea Nitrogen 28 mg/dL (9-16); Calcium 9.4 mg/dL (8.4-10.2); Carbon Dioxide 19 mmol/L (22-29); Chloride 105 mmol/L (96-108); Creatinine Clr Calc Pharmacy 59.9; Estimated Glomerular Filt Rate 47; Glucose Fasting 127 mg/dL (60-99); Potassium 4.1 mmol/L (3.3-5.1); Sodium 138 mmol/L (135-145)
[2022-02-28 08:00] VITALS: BP 113/57; PULSE 63; RESP 20; TEMP 36.7; O2SAT 99
[2022-02-28] MEDS: oxyCODONE HCl ER 10 MG TAB.ER.12H 20 MG PO ×2 (08:18→19:52)
[2022-02-28] MEDS: lisinopriL 20 MG TABLET PO (08:18)
[2022-02-28] MEDS: carvediloL 12.5 MG TABLET PO (08:19)
[2022-02-28] MEDS: hydroCHLOROthiazide 25 MG TABLET PO (08:19)
[2022-02-28] MEDS: Docusate Sodium 100 MG CAPSULE PO ×2 (08:19→19:52)
[2022-02-28] MEDS: Enoxaparin Sodium 40 MG/0.4 ML SYRINGE SUBCUT (08:19)
--- NOTE | 2022-02-28 10:03 | P.PNOP_ITS ---
Subjective Subjective Date of Service: 02/28/22 Interval history: POD 1 sp LT TKA no overnight events resting in bed, states she has been out of bed to use the bathroom denies cp, palpitations, sob Physical Exam Vital Signs: Vital Signs: Last Vital Signs Temp 98.0 F 02/28/22 08:00 Pulse 63 02/28/22 08:00 Resp 20 02/28/22 08:00 BP 113/57 L 02/28/22 08:00 Pulse Ox 99 02/28/22 08:00 O2 Del Method 02/28/22 08:00 BMI result Body Mass Index 38.5 Const: General: cooperative, healthy appearing and no acute distress Resp: Effort & Inspection: normal respiratory effort and able to speak in complete sentences Cardio: Rate: regular rate Peripheral pulses: Peripheral pulses 2+ throughout GI: Palpation (GI): Soft to palpation Skin: General skin exam: no rashes or lesions noted Extrem: Other: bandage clean dry and intact. [place] intact. No erythema or joint effusion. Calf supple nontender. Neurovascularly intact. Procedures Date of Service Date of Service: 02/28/22 Progress Note: A&P Assessment and plan (1) Status post left knee replacement: Status: Acute Assessment and Plan: * Continue pain mgmnt * Begin Lovenox for dvt ppx * begin PT for LT TKA * Dispo planning-Pending PT eval, pain mgmnt Time Spent With Patient Time: Total time spent is greater than 50% in coordination of care (as documented) at patient's floor/unit and/or counseling patient: Quality Stroke Does the patient have a stroke diagnosis?: No VTE Prior VTE?: No VTE Risk Level:: Surgical - high VTE Device Contraindication: N/A - Device Ordered VTE Drug Contraindication: N/A - Med Ordered
[2022-02-28 11:23] VITALS: BP 100/52; PULSE 58; RESP 20; TEMP 36.4; O2SAT 96
[2022-02-28] MEDS: oxyCODONE HCl Immed Release 5 MG TABLET 10 MG PO ×2 (13:10→23:55)
[2022-02-28] MEDS: ondansetron HCL 4 MG/2 ML VIAL IVPUSH (13:10)
--- NOTE | 2022-02-28 14:17 | HO.POSTANES ---
Post Anesthesia Evaluation Post Anesthesia Evaluation Vital Signs: Vital Signs Temp Pulse Resp BP Pulse Ox O2 Del Method 02/28/22 12:52 Room Air 02/28/22 11:23 97.6 F 58 20 100/52 L 96 Room Air 02/28/22 11:23 96 Room Air 02/28/22 08:00 98.0 F 63 20 113/57 L 99 Room Air Anesthesia: Spinal and Nerve Block Mental Status: Awake Pain Control: Satisfactory Nausea/Vomiting: None Hydration: Adequate Anesthesia-Related Issues: No Anes. Related Issues
[2022-02-28 19:00] VITALS: BP 122/66; PULSE 67; RESP 17; TEMP 36.1; O2SAT 100
[2022-02-28] MEDS: 0.9 % Sodium Chloride Flush 3 ML SYRINGE IVFLUSH (19:53)
[2022-02-28] MEDS: Lactated Ringers 1,000 ML 999 ML IV (20:57)
[2022-03-01 02:28] VITALS: BP 101/49; PULSE 69; RESP 17; TEMP 36.2; O2SAT 95
[2022-03-01] MEDS: oxyCODONE HCl Immed Release 5 MG TABLET 10 MG PO (05:30)
[2022-03-01 06:13] LABS: MANUAL DIFF FLAG NO
[2022-03-01 06:26] LABS: Basophils Percent Auto 0.4 % (0-2); Eosinophils Absolute Auto 0.1 X10*3/uL (0.0-0.4); Hematocrit 30.1 % (37.0-47.0); Hemoglobin 9.8 g/dl (12.0-16.0); Imm Gran Abs Auto 0.04 X10*3/uL (0.00-0.03); Imm Gran Pct Auto 0.4 % (0.0-0.4); Lymphocytes Absolute Auto 2.4 X10*3/uL (1.2-4.9); Lymphocytes Percent Auto 23.5 % (20-40); Mean Corpuscular HGB Conc 32.6 g/dl (31.0-35.0); Mean Corpuscular Hemoglobin 30.9 pg (27.0-33.0); Mean Platelet Volume 11.1 fL (9.4-12.3); Monocytes Absolute Auto 0.9 X10*3/uL (0.1-1.2); Monocytes Percent Auto 8.7 % (2-11); Neutrophils Absolute Auto 6.8 x10*3/uL (2.0-8.3); Platelet Count 176 X10*3/uL (160-400); Red Blood Count 3.17 X10*6/uL (4.20-5.50); Red Cell Distribution Width 12.9 % (11.0-16.0); White Blood Count 10.3 X10*3/uL (4.8-10.8)
[2022-03-01 06:48] LABS: Anion Gap 14 (12-20); Blood Urea Nitrogen 31 mg/dL (9-16); Calcium 9.2 mg/dL (8.4-10.2); Carbon Dioxide 27 mmol/L (22-29); Chloride 102 mmol/L (96-108); Creatinine Clr Calc Pharmacy 42.4; Estimated Glomerular Filt Rate 32; Glucose Fasting 95 mg/dL (60-99); Potassium 4.6 mmol/L (3.3-5.1); Sodium 138 mmol/L (135-145)
[2022-03-01 07:43] VITALS: BP 116/56; PULSE 70; RESP 12; TEMP 37.3; O2SAT 96
[2022-03-01] MEDS: Docusate Sodium 100 MG CAPSULE PO (08:14)
[2022-03-01] MEDS: oxyCODONE HCl ER 10 MG TAB.ER.12H 20 MG PO (08:14)
[2022-03-01] MEDS: carvediloL 12.5 MG TABLET PO (08:14)
--- NOTE | 2022-03-01 08:43 | P.DS_ITS ---
DS: Providers Provider Date of Service: 03/01/22 Date of admission: 02/27/22 07:49 Primary care physician: Taryn Olvera NP Consults: 02/27/22 18:00 Consult to Hospitalist Routine Consulting Provider: Hospitalist Reason For Exam: CKD DS: Diagnosis Discharge Diagnosis (1) Status post left knee replacement: Status: Acute DS: Summary Hospital Course Hospital Course: The patient underwent a successful left total knee arthroplasty, they were transferred to PACU and then to the floor to recover. During their stay, their vitals were stable, afebrile at 99.1. Labs were unremarkable, H/H 9.8/30.1. POD 1 they were started on Lovenox for DVT ppx, they also received Physical Therapy services twice a day. Prior to discharge, their dressing was changed, incision clean dry and intact, new Aquacel dressing applied and the plan was to be discharged home with VNA services. Time Spent with Patient Time attestation: Total time spent providing and/or coordinating discharge services: Discharge coordination time: Less than 30 minutes Quality: Safe Use of Opioids Does Pt have an Active Cancer Diagnosis on the Problem List?: No Quality: Stroke Does the patient have a stroke diagnosis?: No Physical Exam Vital Signs: Vital Signs: Last Vital Signs Temp 99.1 F 03/01/22 07:43 Pulse 70 03/01/22 07:43 Resp 12 03/01/22 07:43 BP 116/56 L 03/01/22 07:43 Pulse Ox 96 03/01/22 07:43 O2 Del Method 03/01/22 07:43 BMI result Body Mass Index 38.5 Const: General: cooperative, healthy appearing and no acute distress Resp: Effort & Inspection: normal respiratory effort and able to speak in complete sentences Cardio: Rate: regular rate Peripheral pulses: Peripheral pulses 2+ throughout GI: Palpation (GI): Soft to palpation Skin: Lesions: no lesions Rashes: no rashes Extrem: Other: Left knee [place] are intact. Incision site is clean, dry and intact. Mo erythema, edema, or drainage. Calf is supple and nontender. NVI. DS: Data Data Completed and Pending Pending studies at discharge: Pending at discharge 02/27/22 11:19 Surgical [PTH] Routine Labs on day of discharge: Laboratory Results - last 24 hr 03/01/22 03/01/22 05:28 05:28 WBC 10.3 RBC 3.17 L Hgb 9.8 L Hct 30.1 L MCV 95.0 MCH 30.9 MCHC 32.6 RDW 12.9 Plt Count 176 MPV 11.1 Immature Gran % (Auto) 0.4 Neut % (Auto) 66.0 Lymph % (Auto) 23.5 [place] % (Auto) 8.7 Eos % (Auto) 1.0 Baso % (Auto) 0.4 Lymph # (Auto) 2.4 [place] # (Auto) 0.9 Eos # (Auto) 0.1 Baso # (Auto) 0.0 Abs Immat Gran (auto) 0.04 H Absolute Neuts (auto) 6.8 Absolute Nucleated RBC 0.000 Nucleated RBC % (auto) 0.0 Sodium 138 Potassium 4.6 Chloride 102 Carbon Dioxide 27 Anion Gap 14 BUN 31 H Creatinine 1.61 H Estim Creat Clear Calc 42.4 Estimated GFR 32 Fasting Glucose 95 Calcium 9.2 Discharge Plan Discharge Patient Disposition: Home Health Service Discharge Diagnosis: s/p lt tka Referrals: Jeroinmo Molina PA-C [Physician Biometric Technician] - 2 Weeks (03/15/22 2:30 [facility] [place] [facility] Jeronimo Molina PA-C) Discharge Medications: New docusate sodium 100 mg Capsule 100 mg PO BID 14 Days Qty: 28 0RF oxycodone 10 mg tablet 10 mg PO Q4H PRN (Reason: Pain, Moderate (Pain Scale 4-6) 7 Days Qty: 42 0RF Rx Instructions: Partial Fill upon patient request. acetaminophen 325 mg Tablet 650 mg PO Q6H PRN (Reason: Pain, Mild (Pain Scale 1-3)) 30 Days Qty: 240 0RF enoxaparin 40 mg/0.4 mL Syringe 40 mg subcut Q24H 42 Days Qty: 16.8 0RF Continued (LENARD Rob See Rx Instructions .MEDSUPPLY Qty: 1 0RF Rx Instructions: Abhinav mcallister hydrochlorothiazide 25 mg tablet 25 mg PO DAILY lisinopril 20 mg tablet 20 mg PO BID carvedilol 12.5 mg tablet 12.5 mg PO BID Discontinued tramadol 50 mg tablet 25 mg PO BEDTIME PRN (Reason: Pain) Discharge Orders: Discharge Order (Routine); Ordered 03/01/22 Ordered By: Carleen Pedroza Diet: Regular diet Activity on Discharge: Use cane or walker Stand Alone Forms: Patient Portal Discharge page Care Plan Goals: Restore function of joint Health Concerns: Avoid NSAIDs or other renal-toxic medications Plan of Treatment: Physical Therapy Pain management DVT prophylaxis Assessment: Physical Therapy for Total knee arthroplasty: WBAT, gait training, ROM 0-12, quad strength * Limit stair climbing * No showering, no tub bath-keep dressing clean, dry and intact * No driving x6 weeks * Continue Lovenox once a day x 6 weeks * Follow up with [facility] Orth[facility]ics in 2 weeks: 03/15/22 @ 2:30 * --you will also have your first out patient PT eval on the day of your post op appt-so please plan on being in the office that day for an extended period of time.
--- NOTE | 2022-03-01 08:52 | MHC.CM.PN ---
PATIENT LIVES WITH ADULT SON/HCP (COPY REQUESTED) SHE HAS A CANE AND WALKER IN THE HOME. ASKS FOR A REFERRAL TO [facility], ALREADY PLACED AND SERVICE ACCEPTED. SHE IS COVID VACCINATED X 3. PCP IS EMBER FLOREZ. FAMILY TO [facility] TODAY WITH SERVICES. IMM 02/28 IN CHART
--- NOTE | 2022-03-01 09:16 | P.F2F_ITS ---
Service Date Service Date: 03/01/22 Encounter Date of encounter: 03/01/22 Reasons for Services Signs and symptoms assessed: Pt. is considered homebound due to recent surgery. Unable to drive, poor balance, poor gait mechanics. Reason for physical therapy: home safety and mobility, therapeutic exercises, restore joint function, gait/transfer training, assess need for DME and ADL training Homebound: Leaving the home is medically contraindicated at this time without the asist of a device and/or another person due th the listed conditions above and below. Reason homebound: unsteady gait / fall risk, leg weakness, pain with ambulation, pain with transfers, poor balance / fall risk and unable to drive Certification: Based on the above findings, I certify that this patient is confined to the home and needs intermittent residential care, physical therapy and/or speech therapy, or continues to need occupational therapy. The patient is under my care, and I have initiated the establishment of the plan of care. The patient will be followed by a physician who will periodically review the plan of care.
[2022-03-01] MEDS: lisinopriL 20 MG TABLET PO (09:32)
[2022-03-01] MEDS: hydroCHLOROthiazide 25 MG TABLET PO (09:32)
[2022-03-01] MEDS: Enoxaparin Sodium 40 MG/0.4 ML SYRINGE SUBCUT (09:34)
[2022-03-01 12:00] VITALS: O2SAT 97
--- NOTE | 2022-03-01 12:00 | MHC.CM.PN ---
PATIENT IS DC HOME TODAY WITH NEW [facility] SERVICES. SHE DOES NOT FEEL THE NEED FOR RN SKILLS, AND CAN MANAGE HER OWN LOVENOX. FAMILY TO TRANSPORT. RN AWARE OF PLAN.
== END 2022-03-01 12:30 | disposition home health service (06) | DRG 470 ==
LOC: HO.SSSA 07:52 → HO.S3 17:12
PROVIDERS: Internal Medicine; Nurse Practitioner; Physician Assistant; Admitting Provider Orthopaedic Surgery; PCP Hospitalist; Visit Provider Orthopaedic Surgery
PROC: 0SRD0J9 Replacement of Left Knee Joint with Synthetic Substitute, Cemented, Open Approach (ICD-10-PCS; CPT 27447; principal; 2022-02-27 09:40)
DX: M17.12 Unilateral primary osteoarthritis, left knee (principal); I12.9 Hypertensive chronic kidney disease with stage 1 through stage 4 chronic kidney disease, or unspecified chronic kidney disease; N18.30 Chronic kidney disease, stage 3 unspecified; Z20.822 Contact with and (suspected) exposure to COVID-19; Z79.899 Other long term (current) drug therapy
CPT/HCPCS: 27447; 36415; 73560; 80048; 85014; 85018; 85025; 85027; 86850; 86900; 86901; 87635; 87640; 87641; 88305; 88311; 97110; 97116; 97162; C1713; C1776; J0131; J0690; J1100; J1170; J1650; J2250; J2370; J2405; J2795

== ENCOUNTER 2022-03-15 07:47 | Outpatient (RCR) | payer MEDICARE, SELFPAY | END 2022-05-07 15:28 | disposition home or self-care (01) | LOC: HO.PT 07:47 | PROVIDERS: Visit Provider Physician Assistant | DX: Z96.652 Presence of left artificial knee joint (principal) ==

== ENCOUNTER → 2022-03-15 14:23 | Outpatient (BNVA) | payer MEDICARE, SELFPAY | PROVIDERS: PCP Hospitalist; Visit Provider Orthopaedic Surgery | DX: Z47.1 Aftercare following joint replacement surgery (principal); Z96.652 Presence of left artificial knee joint | CPT/HCPCS: 99212 ==

== ENCOUNTER 2022-04-06 09:01 | Outpatient (REF) | payer MEDICARE, SELFPAY ==
[2022-04-06 11:47] LABS: Anion Gap 14 (12-20); Blood Urea Nitrogen 18 mg/dL (9-16); Carbon Dioxide 25 mmol/L (22-29); Chloride 105 mmol/L (96-108); Estimated Glomerular Filt Rate 53; Potassium 4.3 mmol/L (3.3-5.1); Sodium 140 mmol/L (135-145)
== END 2022-04-06 09:02 | disposition home or self-care (01) ==
LOC: HO.WFDLDS 09:01
PROVIDERS: Visit Provider Internal Medicine Nephrology
DX: I10 Essential (primary) hypertension (principal)
CPT/HCPCS: 36415; 80051; 82308; 82310; 82565; 84520

== ENCOUNTER → 2022-04-12 09:52 | Outpatient (BNVA) | payer MEDICARE, SELFPAY | PROVIDERS: PCP Hospitalist; Visit Provider Physician Assistant | DX: Z47.1 Aftercare following joint replacement surgery (principal); Z96.652 Presence of left artificial knee joint | CPT/HCPCS: 99212 ==

== ENCOUNTER 2022-05-10 09:00 | Outpatient (RCR) | payer MEDICARE, SELFPAY ==
[2022-03-23 08:06] VITALS: BP 80/62; PULSE 85; O2SAT 97
== END 2022-08-02 07:46 | disposition home or self-care (01) ==
LOC: HO.PTWFD 09:00
PROVIDERS: Visit Provider Orthopaedic Surgery
DX: Z96.652 Presence of left artificial knee joint (principal)
CPT/HCPCS: 97110; 97116; 97140; 97161; 97162; 97535

== ENCOUNTER 2022-06-01 10:14 | Outpatient (REF) | payer MEDICARE, SELFPAY | END 2022-06-01 10:15 | disposition home or self-care (01) | LOC: HO.HOSX 10:14 | PROVIDERS: Visit Provider Orthopaedic Surgery | DX: Z47.1 Aftercare following joint replacement surgery (principal); Z96.652 Presence of left artificial knee joint | CPT/HCPCS: 73560; 73565; 99212 ==

== ENCOUNTER 2023-08-09 11:14 | Outpatient (AMB) | payer MEDICARE, SELFPAY ==
--- NOTE | 2023-08-09 11:18 | MHC.PC.OV ---
Vital Signs 08/09/23 11:19 08/09/23 12:01 Height 5 ft 8 in Weight 258 lb 4 oz BMI 39.3 BP 156/80 H 136/70 Blood Pressure Location Rt brachial Lt brachial Position Sitting Sitting Respiration 13 Pulse 60 Pulse Source Pulse Oximeter Temp 97.8 F Temp Source Temporal Artery Scan Pulse Oximetry (%) 99 Oxygen Delivery Method Room Air Intake Visit Reasons: Transfer of care, HTN and BP Signing Teacher Required: No Accompanied by: Self / Same As Patient Allergies No Known Allergies Allergy (Verified 08/09/23 11:37) Medication List - Last Reconciled 08/09/23 by Keira Molina CNP blood pressure test kit-large As directed carvedilol 12.5 mg PO BID chlorthalidone 25 mg PO DAILY walker Rollator walker Tobacco use date assessed: 08/09/23 Fall risk assessment: 1 Fall in past year Last assessed Fall Risk: 08/09/23 Dental Screening Dental Screen Date: 08/09/23 Did you have a dental visit in the last 12 months?: No Did you have a dental problem in the last 6 months where you did not have access to dental care?: No Was dental information given to patient?: Patient has dentist HPI HPI Comments History of Present Illness Details 72 y/o patient presents for transfer of care Her former PCP is [place] who has no longer with the practice. Her last office visit was in August 2022; last blood work was in 2021 She has past history of hypertension, osteoarthritis of the left knee, CKD stage 3, obesity, and lumbar radiculopathy She notes that she is followed by Dr Villavicencio, [facility]; her last appt was 4 months ago. Her neurologist manages her BP medications She states that she had left total knee replacement at [facility] about 1 year ago She reports right lower leg swelling which she noticed 3 weeks ago. No pain, no difficulty breathing [facility] Medical History CKD (chronic kidney disease), stage III Dislocated shoulder Edema of both lower extremities Arthritis Arm fracture, left Ganglion cyst Left knee pain Hypertension Surgical History History of total knee replacement Hx of wisdom tooth extraction Hx of colonoscopy Family History Father Congestive heart failure Son Leukemia Social History Household Members Other:: son age 34 Housing: House Are you a primary landcare officer to a significant other at home: No Do you presently have visiting nurse or other home services: No Alcohol intake: current Alcohol intake frequency: holidays/special occasions only Alcohol type: beer Patient Tobacco Use Status: Never used Tobacco e-Cigarette/Vaping Use: Never Used service: No Current occupational status: retired Cognitive needs: No Hearing needs: No Vision needs: Yes Questionnaire PHQ-9 Over the last 2 weeks, how often have you been bothered by any of the following problems? 1. Little interest or pleasure in doing things: not at all 2. Feeling down, depressed, or hopeless: not at all 3. Trouble falling or staying asleep, or sleeping too much: not at all 4. Feeling tired or having little energy: not at all 5. Poor appetite or overeating: not at all 6. Feeling bad about yourself - or that you are a failure or have let yourself or your family down: not at all 7. Trouble concentrating on things, such as reading the newspaper or watching television: not at all 8. Moving or speaking so slowly that other people could have noticed. Or the opposite - being so fidgety or restless that you have been moving around a lot more than usual: not at all 9. Thoughts that you would be better off or of hurting yourself in some way: not at all Total score: 0 Depression Screening Interpretation: Negative Depression Screening Done: Yes [id number] - PHQ-9 Billing: Yes Source: Developed by Drs. Luis Land, Terri Russo, Derek Perry and colleagues, with an educational kishore from [employer]. Thrive Questionnaire Date Thrive assessed: 08/09/23 I am a: Patient What is your living situation today?: I have a steady place to live Within the past 12 months, did the food you bought not last and you didn't have the money to get more?: Never true Within the past 12 months, did you worry whether your food would run out before you got money to buy more?: Never true Do you have trouble paying for medicines?: No Do you have trouble getting transportation to medical appointments?: No Do you have trouble paying your heating and electricity bill?: No Do you have trouble taking care of your child, family member or friend?: No Do you have trouble with day-to-day activities such as bathing, preparing meals, shopping, managing finances, etc.?: No Are you currently unemployed and looking for a job?: No Are you interested in more education?: No Please select the resources that you would like help with: None Currently or been in a relationship where the following occur: no concerns reported THRIVE Score: 0 AUDIT C Alcohol Use Questionnaire (AUDIT-C) 1. How often do you have a drink containing alcohol?: 2-4 times a month 2. How many drinks containing alcohol do you have on a typical day when you are drinking?: 1 or 2 3. How often do you have six or more drinks on one occasion?: Never Total Score: 2 JASON-7 AMB Questionnaire JASON-7 Date JASON - 7 assessed: 08/09/23 Feeling nervous, anxious, or on edge: 0 = Not at all Not being able to stop or control worryin = Not at all Worrying too much about different things: 0 = Not at all Trouble relaxin = Not at all Being so restless that it is hard to sit still: 0 = Not at all Becoming easily annoyed or irritable: 0 = Not at all Feeling afraid as if something awful might happen: 0 = Not at all Total JASON-7 score (0-4 normal; 5-9 mild; 10-14 moderate; 15-21 severe): 0 Source: Developed by Drs. Luis Land, Terri Russo, Derek Perry and colleagues, with an educational kishore from [employer]. JASON-7 Assessment Billing JASON-7 Assessment Tool: JASON-7 Assessment [id number] Review of Systems Const Details: Const Denies chills, Denies fatigue, Denies fever(s), Denies headache(s) and Denies weakness ENT Denies dizziness and Denies headache(s) Card Denies chest pain, Denies lightheadedness, Denies dyspnea and Denies other (Palpitations) Resp Denies cough, Denies dyspnea, Denies wheezing and Denies other ( shortness of breath) GI Denies abdominal pain, Denies melena, Denies hematochezia, Denies change in bowel habits, Denies dyspepsia and Denies nausea Denies hematuria and Denies dysuria Musc Denies abnormal gait, Denies myalgias, Denies arthralgias, Denies numbness and Denies tingling Skin/Breast Denies rash, Denies unusual bruising and Denies wounds Neuro Denies abnormal gait, Denies dizziness, Denies headache(s), Denies memory loss, Denies numbness, Denies Sensory deficit (Neuro), Denies tingling and Denies weakness Psych Denies anxiety, Denies depression, Denies memory loss Endo Denies cold intolerance, Denies fatigue, Denies heat intolerance, Denies polydipsia and Denies polyuria Aller/Immun Denies wheezing Physical exam (Primary Care) Vital Signs: Last Vital Signs Temp 97.8 F 08/09/23 11:19 Pulse 60 08/09/23 11:19 Resp 13 08/09/23 11:19 BP 156/80 H 08/09/23 11:19 Pulse Ox 99 08/09/23 11:19 Oxygen Delivery Method Room Air 08/09/23 11:19 BMI result Body Mass Index 39.3 Tobacco/Smoking Status: Tobacco use Status Tobacco use date assessed 08/09/23 08/09/23 11:35 Patient Tobacco Use Status Never used Tobacco 08/09/23 11:35 e-Cigarette/Vaping Use Never Used 08/09/23 11:35 PHQ-9: PHQ-9 Score PHQ-9: Total score 0 08/09/23 11:35 Depression Screening Interpretation: Negative Thrive Assessment: Date of Thrive Assessment Date Thrive assessed 08/09/23 08/09/23 11:35 Currently or been in a relationship where the following occur: no concerns reported Const Other: General: no acute distress and well developed Nutritional Appearance: well nourished Orientation/consciousness: patient oriented x3 HENMT Head: Yes normocephalic and Yes atraumatic Eyes General: appearance normal, both eyes and all related structures Pupils: Equal, round and reactive pupils present EOM: EOMs intact bilaterally Resp Effort & Inspection: normal respiratory effort Auscultation: clear to auscultation bilaterally Cardio Rate: regular rate Rhythm: regular rhythm Heart sounds: S1 normal heart sound present, S2 normal heart sound present, no gallops, no murmurs and no rubs GI Palpation (GI): No Abdominal aortic bruit present, Soft to palpation, nontender, No hepatosplenomegaly present and No Rebound tenderness present Auscultation: normal bowel sounds General: Yes no CVA tenderness Back/Spine/Pelvis Back: no CVA tenderness Cervical Spine: cervical ROM normal and No Cervical spine tenderness Thoracic/Lumbar Spine: thoraco-lumbar ROM normal, No pain with thoraco-lumbar ROM, No thoracic spinal tenderness and No lumbar spinal tenderness Extrem General: Yes normal to inspection, Moderate non-pitting edema to right lower leg, No erythema or overt trauma or injury, and No calf tenderness Skin General: warm and dry. Normal skin color. Normal skin turgor Neuro General: patient oriented x3, gait normal and no focal neuro deficit Cranial nerves: Yes Equal, round and reactive pupils present Cognition (Neuro): normal cognition Gait exam (Neuro): Normal gait present Sensory Exam: No Sensory deficit (Neuro) Psych Appearance: grossly normal Affect: normal affect Attitude: cooperative Thought process: Normal thought process present Assessment and Plan Assessment & Plan (1) HTN, goal below 130/80: Code(s): I10 - Essential (primary) hypertension Plan: Resting blood pressure is 136/70, above goal of less than 130/80 Will increase chlorthalidone to 50 mg daily to also improve right leg swelling. Take as prescribed Continue to take carvedilol as prescribed Denies increase sodium intake Low-sodium diet and routine exercise encouraged Continue follow-up with Nephrology as planned Follow-up in 1 month for complete physical exam, hypertension, and labs review Return sooner with symptoms or concerns Verbalized understanding and agreed with treatment plan (2) Right leg swelling: Code(s): M79.89 - Other specified soft tissue disorders Plan: Right lower leg swelling x 3 weeks Moderate non-pitting edema to right lower leg, No erythema or overt trauma or injury Clotrimazole and increased to 50 mg daily. Take as prescribed Low-sodium diet encouraged Will continue to monitor Verbalized understanding and agreed with treatment plan (3) Laboratory tests ordered as part of a complete physical exam (CPE): Code(s): Z00.00 - Encounter for general adult medical examination without abnormal findings Plan: Fasting labs ordered in preparation of a complete physical exam. Advised to fast for at least 10 hours before getting labs drawn. May drink water Verbalized understanding and agreed with treatment plan. Orders: Orders Complete Blood Count Auto Diff Today Z00.00 - Encounter for general adult medical examination without abnormal findings Lipid Panel Today Z00.00 - Encounter for general adult medical examination without abnormal findings Comprehensive [place]. Panel Fast Today Z00.00 - Encounter for general adult medical examination without abnormal findings TSH reflex Free T4 Today Z00.00 - Encounter for general adult medical examination without abnormal findings UA CC w/rflx Micro + Cult Today Z00.00 - Encounter for general adult medical examination without abnormal findings Medications: New chlorthalidone 50 mg PO DAILY 30 days 30 tabs 2RF Coding Level of Care Code Est Pt Level 4 (76682) Diagnoses HTN, goal below 130/80 I10 Right leg swelling M79.89 Laboratory tests ordered as part of a complete physical exam (CPE) Z00.00 Additional Codes JASON-7 Assessment Billing - JASON-7 Assessment Tool: JASON-7 Assessment 00616 ([id number])
[2023-08-09 11:19] VITALS: BP 156/80; PULSE 60; RESP 13; TEMP 36.6; O2SAT 99; BMI 39.3
[2023-08-09 12:01] VITALS: BP 136/70
== END 2023-08-09 12:14 | disposition home or self-care (01) ==
PROVIDERS: PCP Hospitalist; Visit Provider Nurse Practitioner Family
DX: I10 Essential (primary) hypertension (principal); M79.89 Other specified soft tissue disorders; Z00.00 Encounter for general adult medical examination without abnormal findings
CPT/HCPCS: 99214

== ENCOUNTER 2023-11-13 10:01 | Outpatient (AMB) | payer MEDICARE, SELFPAY ==
--- NOTE | 2023-11-13 10:03 | HO.NEPHOV_ITS ---
Vital Signs 11/13/23 10:06 Height 5 ft 8 in Weight 242 lb 6 oz BMI 36.8 BP 110/70 Blood Pressure Location Lt brachial Position Sitting Pulse 63 Pulse Source Pulse Oximeter Pulse Oximetry (%) 99 Oxygen Delivery Method Room Air Intake Visit Reasons: follow-up/ LVM Supervising Law Enforcement Analyst Required: No Accompanied by: Self / Same As Patient Allergies No Known Allergies Allergy (Verified 11/13/23 10:09) HPI Comments Details: April was seen in follow-up of her hypertension. She has lost significant amount of weight. She has going through a lot of personal stressors. She had been having edema and her chlorthalidone has been increased to 50 mg daily by her primary care provider. She does not have any orthostatic symptoms, weakness, chest pain, shortness of breath, nausea, vomiting, diarrhea. Her blood pressure has been at goal. She is ambulating well after her left knee replacement. There were no other new systemic complaints during this office visit [facility] Medical History (Updated 11/13/23 @ 10:25 by Seht Villavicencio MD) Hypertension CKD (chronic kidney disease), stage III Dislocated shoulder Edema of both lower extremities Arthritis Arm fracture, left Ganglion cyst Left knee pain Surgical History History of total knee replacement Hx of wisdom tooth extraction Hx of colonoscopy Family History Father Congestive heart failure Son Leukemia Social History Household Members Other:: son age 34 Housing: House Are you a primary field care manager to a significant other at home: No Do you presently have visiting nurse or other home services: No Alcohol intake: current Alcohol intake frequency: holidays/special occasions only Alcohol type: beer Patient Tobacco Use Status: Never used Tobacco e-Cigarette/Vaping Use: Never Used service: No Current occupational status: retired Cognitive needs: No Hearing needs: No Vision needs: Yes Physical Exam Vital Signs: Last Vital Signs Pulse 63 11/13/23 10:06 BP 110/70 11/13/23 10:06 Pulse Ox 99 11/13/23 10:06 Oxygen Delivery Method Room Air 11/13/23 10:06 BMI result Body Mass Index 36.8 Const General: comfortable and no acute distress Orientation/consciousness: patient oriented x3 HEENT Head: Yes normocephalic Mouth: Normal oral and palatal mucosa present Eyes EOM: EOMs intact bilaterally Neck Neck: Yes supple Resp Auscultation: clear to auscultation bilaterally Cardio Jugular venous distension: no JVD Rate: regular rate GI Palpation (GI): Soft to palpation Auscultation: normal bowel sounds General: Yes no CVA tenderness Back/Spine/Pelvis Back: no CVA tenderness Skin General skin exam: no rashes or lesions noted Neuro General: patient oriented x3 and moves all extremities Extrem General: Yes no pedal edema Assessment & Plan Assessment & Plan (1) HTN, goal below 130/80: Code(s): I10 - Essential (primary) hypertension Category: Medical Plan April has longstanding hypertension. She has lost significant amount of weight. She had been on carvedilol and chlorthalidone. Dosage of chlorthalidone had been increased recently to 50 mg daily by her primary care provider. So I ordered blood chemistry and renal functions to be done today after this office visit. She does not had excessive sodium in the diet. She maintains good hydration. She avoids nonsteroidal anti-inflammatories. Her renal functions had been at baseline. I had not make any medication changes today. Further management is pending evolving data. Answered all questions. Follow-up appointment given Orders: Orders Blood Urea Nitrogen Today I10 - Essential (primary) hypertension Electrolytes Today I10 - Essential (primary) hypertension Calcium Today I10 - Essential (primary) hypertension Creatinine Today I10 - Essential (primary) hypertension Coding Level of Care Code Est Pt Level 4 (63239) Diagnoses HTN, goal below 130/80 I10
[2023-11-13 10:06] VITALS: BP 110/70; PULSE 63; O2SAT 99; BMI 36.8
== END 2023-11-13 10:30 | disposition home or self-care (01) ==
PROVIDERS: PCP Hospitalist; Visit Provider Internal Medicine Nephrology
DX: I10 Essential (primary) hypertension (principal)
CPT/HCPCS: 99214

== ENCOUNTER → 2023-11-13 10:01 | Outpatient (BNVA) | payer MEDICARE, SELFPAY | PROVIDERS: PCP Hospitalist; Visit Provider Internal Medicine Nephrology | DX: I10 Essential (primary) hypertension (principal) | CPT/HCPCS: 36415; 80051; 82310; 82565; 84520; 99212 ==

== ENCOUNTER 2023-11-13 10:51 | Outpatient (REF) | payer MEDICARE, SELFPAY ==
[2023-11-13 14:12] LABS: Anion Gap 17 (12-20); Blood Urea Nitrogen 24 mg/dL (9-16); Calcium 10.7 mg/dL (8.4-10.2); Carbon Dioxide 28 mmol/L (22-29); Chloride 99 mmol/L (96-108); Estimated Glomerular Filt Rate > 60; Potassium 2.8 mmol/L (3.3-5.1); Sodium 141 mmol/L (135-145)
== END 2023-11-13 10:52 | disposition home or self-care (01) ==
LOC: HO.10HDL 10:51
PROVIDERS: Visit Provider Internal Medicine Nephrology
DX: Z13.89 Encounter for screening for other disorder (principal)
CPT/HCPCS: 36415; 80051; 82310; 82565; 84520

== ENCOUNTER 2023-11-25 11:40 | Outpatient (AMB) | payer MEDICARE, SELFPAY ==
[2023-11-25 11:49] VITALS: BP 136/76; PULSE 75; RESP 14; TEMP 36.6; O2SAT 99; BMI 36.5
--- NOTE | 2023-11-25 11:49 | MHC.OFFWIV ---
Intake Vital Signs 11/25/23 11:49 Height 5 ft 8 in Weight 240 lb BMI 36.5 BP 136/76 Blood Pressure Location Rt brachial Position Sitting Respiration 14 Pulse 75 Pulse Source Pulse Oximeter Temp 97.8 F Temp Source Temporal Artery Scan Pulse Oximetry (%) 99 Oxygen Delivery Method Room Air Intake Visit Reasons: Fell and broke blood vessel left leg Patient Tobacco Use Status: Never used Tobacco Waitstaff Captain Required: No Accompanied by: Grand Child Allergies No Known Allergies Allergy (Verified 11/25/23 12:14) Medication List - Last Reconciled 11/25/23 by KAREN Roberts- blood pressure test kit-large As directed carvedilol 12.5 mg PO BID chlorthalidone 25 mg PO DAILY 30 days potassium chloride ER 20 mEq (2 x 10 mEq) PO DAILY 10 days walker Rollator walker Do you need a note to return to daycare/school/sports/work: No HPI HPI Comments History of Present Illness Details Here today after a fall on Saturday. started w/ a blister to left anterior lower leg Has been elevating and applying ice Denies fever, chills Due for Tdap - given today [facility] Medical History (Updated 11/25/23 @ 12:27 by KAREN Roberts-STEVAN) CKD (chronic kidney disease), stage III Hypertension Dislocated shoulder Edema of both lower extremities Arthritis Arm fracture, left Ganglion cyst Left knee pain Surgical History History of total knee replacement Hx of wisdom tooth extraction Hx of colonoscopy Family History Father Congestive heart failure Son Leukemia Social History Household Members Other:: son age 34 Housing: House Are you a primary critical care specialist to a significant other at home: No Do you presently have visiting nurse or other home services: No Alcohol intake: current Alcohol intake frequency: holidays/special occasions only Alcohol type: beer Patient Tobacco Use Status: Never used Tobacco e-Cigarette/Vaping Use: Never Used service: No Current occupational status: retired Cognitive needs: No Hearing needs: No Vision needs: Yes Physical Exam Vital Signs: Last Vital Signs Temp 97.8 F 11/25/23 11:49 Pulse 75 11/25/23 11:49 Resp 14 11/25/23 11:49 BP 136/76 11/25/23 11:49 Pulse Ox 99 11/25/23 11:49 Oxygen Delivery Method Room Air 11/25/23 11:49 BMI result Body Mass Index 36.5 Extrem Upper/lower leg/hip images: 1. fluid filled blister; periskin is mildly erythematous and warm to touch. No streaking leg w/ chronic lymphedema, thickening and chronic vascular changes. Dry clean gauze wrap applied during visit Assessment & Plan Assessment & Plan (1) PVD (peripheral vascular disease): Code(s): I73.9 - Peripheral vascular disease, unspecified Plan: . (2) Cellulitis of left lower extremity: Code(s): L03.116 - Cellulitis of left lower limb Plan: . (3) CKD (chronic kidney disease), stage III: Code(s): N18.30 - Chronic kidney disease, stage 3 unspecified Qualifiers: Chronic kidney disease stage 3 subtype: stage 3a (GFR 45-59) Qualified Code(s): N18.31 - Chronic kidney disease, stage 3a Plan: This note is constructed using voice recognition software. While every effort has been made to ensure accuracy in scallop shucker, still errors may have been included Sometimes, these errors may affect the content or meaning of the given sentence . Total time spent caring for the patient today was 30 minutes. This includes time spent before the visit reviewing the chart, time spent during the visit, and time spent after the visit on documentation Orders: Orders TDaP Immunization Today Z23 - Encounter for immunization Medications: New doxycycline hyclate 100 mg PO BID 14 caps 0RF 7 days Patient Instructions: The plan today is to treat a cellulitis of the left lower extremity in the setting of chronic peripheral vascular disease with doxycycline. CKD 3 was involved in the decision-making of the antibiotic prescription. Advised to apply a gentle wrap to protect the skin. Do not pop the blister. We will need to follow up in 1 week to ensure proper healing. Coding Level of Care Code Est Pt Level 4 (81471) Diagnoses PVD (peripheral vascular disease) I73.9 Cellulitis of left lower extremity L03.116 Stage 3a chronic kidney disease N18.31 Chronic kidney disease stage 3 subtype: stage 3a (GFR 45-59)
== END 2023-11-25 12:32 | disposition home or self-care (01) ==
PROVIDERS: PCP Hospitalist; Visit Provider Nurse Practitioner Family
DX: I73.9 Peripheral vascular disease, unspecified (principal); L03.116 Cellulitis of left lower limb; N18.31 Chronic kidney disease, stage 3a; Z23 Encounter for immunization
CPT/HCPCS: 90471; 90715; 99214

== ENCOUNTER 2023-12-05 09:04 | Outpatient (AMB) | payer MEDICARE, SELFPAY ==
--- NOTE | 2023-12-05 09:14 | AM.OFFWIN_ITS ---
Intake Vital Signs 3 12/05/23 09:16 Pulse 65 Pulse Source Pulse Oximeter Pulse Oximetry (%) 98 Oxygen Delivery Method Room Air Intake Visit Reasons: 1wk fu lle wound Patient Tobacco Use Status: Never used Tobacco Allergies No Known Allergies Allergy (Verified 11/25/23 12:14) Medication List - Last Reconciled 12/05/23 by JOSE DANIEL Roberts blood pressure test kit-large As directed carvedilol 12.5 mg PO BID chlorthalidone 25 mg PO DAILY 30 days doxycycline hyclate 100 mg PO BID 7 days potassium chloride ER 20 mEq (2 x 10 mEq) PO DAILY 10 days walker Rollator walker HPI HPI Comments 2 History of Present Illness0 Details Here today for a close follow up of the left lower extremity traumatic wound. At the last office visit there was an intact blister. Since this time the blister has self ruptured. She has been tolerating compliant of her antibiotic. She has been applying the dressing on most days. Presents today without the dressing. She denies fever, chills. Plan Call placed to [facility]. Soonest appointment would be after December 18. Unfortunately the patient is leaving for [place] from December 15 through the . There was no exception and getting her in any sooner. Given that I have recommended for daily Xeroform gauze followed by nonadherent followed by Jacquie wrap dressings daily. And 3 more days of doxycycline. Return to office December 10 for re-evaluation. [facility] Medical History (Updated 12/05/23 @ 09:41 by JOSE DANIEL Roberts) CKD (chronic kidney disease), stage III Hypertension Dislocated shoulder Edema of both lower extremities Arthritis Arm fracture, left Ganglion cyst Left knee pain Surgical History History of total knee replacement Hx of wisdom tooth extraction Hx of colonoscopy Family History Father Congestive heart failure Son Leukemia Social History Household Members Other:: son age 34 Housing: House Are you a primary respite care provider to a significant other at home: No Do you presently have visiting nurse or other home services: No Alcohol intake: current Alcohol intake frequency: holidays/special occasions only Alcohol type: beer Patient Tobacco Use Status: Never used Tobacco e-Cigarette/Vaping Use: Never Used service: No Current occupational status: retired Cognitive needs: No Hearing needs: No Vision needs: Yes Review of Systems Const All systems reviewed & are unremarkable except as noted in HPI and below Physical Exam Extrem Upper/lower leg/hip images: 2 1. ruptured blister, breakdown limited to fat layer, moist with dark blood, dried roof of blister adhered to wound bed, this is dry; periskin is mildly erythematous and warm to touch. No streaking leg w/ chronic lymphedema, thickening and chronic vascular changes. xeroform, Nonadh and jacquie applied by me during visit Assessment & Plan Assessment & Plan (1) Cellulitis of left lower extremity: Code(s): L03.116 - Cellulitis of left lower limb (2) PVD (peripheral vascular disease): Code(s): I73.9 - Peripheral vascular disease, unspecified (3) Traumatic open wound of left lower leg: Code(s): S81.802A - Unspecified open wound, left lower leg, initial encounter Qualifiers: Encounter type: subsequent encounter Qualified Code(s): S81.802D - Unspecified open wound, left lower leg, subsequent encounter Plan This note is constructed using voice recognition software. While every effort has been made to ensure accuracy in concrete form setter, still errors may have been included Sometimes, these errors may affect the content or meaning of the given sentence . Total time spent caring for the patient today was 47 minutes. This includes time spent before the visit reviewing the chart, time spent during the visit, and time spent after the visit on documentation Orders: Referrals 2 Wound Care Referral I73.9 - Peripheral vascular disease, unspecified, L03.116 - Cellulitis of left lower limb, S81.802A - Unspecified open wound, left lower leg, initial encounter Medications: Changed 2 From doxycycline hyclate 100 mg PO BID 7 days 14 caps 0RF To doxycycline hyclate 100 mg PO BID 3 days 6 caps 0RF Coding Level of Care Code Est Pt Level 5 (64604) Diagnoses Cellulitis of left lower extremity L03.116 PVD (peripheral vascular disease) I73.9 Traumatic open wound of left lower leg, subsequent encounter S81.802D Encounter type: subsequent encounter
[2023-12-05 09:16] VITALS: PULSE 65; O2SAT 98
== END 2023-12-05 09:37 | disposition home or self-care (01) ==
PROVIDERS: PCP Hospitalist; Visit Provider Nurse Practitioner Family
DX: L03.116 Cellulitis of left lower limb (principal); I73.9 Peripheral vascular disease, unspecified; S81.802D Unspecified open wound, left lower leg, subsequent encounter
CPT/HCPCS: 99215

== ENCOUNTER 2023-12-11 10:01 | Outpatient (AMB) | payer MEDICARE, SELFPAY ==
--- NOTE | 2023-12-11 10:04 | MHC.PC.OV ---
Vital Signs 12/11/23 10:08 Weight 236 lb 8 oz BP 132/80 Blood Pressure Location Rt brachial Position Sitting Respiration 16 Pulse 69 Pulse Source Pulse Oximeter Temp 98.2 F Temp Source Oral Pulse Oximetry (%) 98 Oxygen Delivery Method Room Air Intake Visit Reasons: 30 min December 10 with me GRISEL GANN wound Intake Note: patient here for follow up on wound. Edi Developer Required: No Is last menstrual period known: No Post menopausal: No Patient : No Allergies No Known Allergies Allergy (Verified 12/11/23 10:07) Medication List - Last Reconciled 12/11/23 by JOSE DANIEL Roberts blood pressure test kit-large As directed carvedilol 12.5 mg PO BID chlorthalidone 25 mg PO DAILY 30 days walker Rollator walker Tobacco use date assessed: 08/09/23 Dental Screening Dental Screen Date: 08/09/23 HPI HPI Comments History of Present Illness Details Here today for close interim follow up of left lower extremity wound. Since last office visit she completed 3 additional days of doxycycline. She has been applying Xeroform gauze followed by a dry clean dressing daily. She still has not been able to get an appointment with [facility] is wound clinic as at this time. She continues to deny any systemic symptoms. [facility] Medical History (Updated 12/05/23 @ 09:41 by JOSE DANIEL Roberts) CKD (chronic kidney disease), stage III Hypertension Dislocated shoulder Edema of both lower extremities Arthritis Arm fracture, left Ganglion cyst Left knee pain Surgical History History of total knee replacement Hx of wisdom tooth extraction Hx of colonoscopy Family History Father Congestive heart failure Son Leukemia Social History Household Members Other:: son age 34 Housing: House Are you a primary acute care physician to a significant other at home: No Do you presently have visiting nurse or other home services: No Alcohol intake: current Alcohol intake frequency: holidays/special occasions only Alcohol type: beer Patient Tobacco Use Status: Never used Tobacco e-Cigarette/Vaping Use: Never Used service: No Current occupational status: retired Cognitive needs: No Hearing needs: No Vision needs: Yes Questionnaire Thrive Questionnaire Date Thrive assessed: 08/09/23 JASON-7 AMB Questionnaire JASON-7 Date JASON - 7 assessed: 08/09/23 Source: Developed by Drs. Luis Land, Terri Russo, Derek Perry and colleagues, with an educational kishore from [employer]. Physical exam (Primary Care) Vital Signs: Last Vital Signs Temp 98.2 F 12/11/23 10:08 Pulse 69 12/11/23 10:08 Resp 16 12/11/23 10:08 BP 132/80 12/11/23 10:08 Pulse Ox 98 12/11/23 10:08 Oxygen Delivery Method Room Air 12/11/23 10:08 Tobacco/Smoking Status: Tobacco use Status Tobacco use date assessed 08/09/23 12/11/23 10:05 Patient Tobacco Use Status Never used Tobacco 12/11/23 10:05 e-Cigarette/Vaping Use Never Used 12/11/23 10:05 Thrive Assessment: Date of Thrive Assessment Date Thrive assessed 08/09/23 12/11/23 10:05 Skin Full body images: 1. Healthy granulation tissue noted on the perimeter, surrounding skin free from excessive warmth, erythema or signs of infection. Wound base is moist, limited to break down in skin, pink, red in color with some darkened areas that do not appear necrotic. There is no drainage. There is no odor. This was cleansed with normal saline, Xeroform gauze and dry clean dressing was applied at the time of visit by provider. Assessment and Plan Assessment & Plan (1) Traumatic open wound of left lower leg: Code(s): S81.802A - Unspecified open wound, left lower leg, initial encounter Qualifiers: Encounter type: subsequent encounter Qualified Code(s): S81.802D - Unspecified open wound, left lower leg, subsequent encounter Medications: New doxycycline hyclate 100 mg PO BID 7 days 14 caps 0RF Patient Instructions: Advised to continue daily Xeroform dressings. Call [facility] wound center to get the soonest appointment. will send in antibiotics to use p.r.n. while away on vacation as she is leaving for [place] November 18 through the . Educated on signs and symptoms of infection which will require antibiotic treatment. There is no sign of infection today. Unfortunately the gauze dressing continues to fall down, I have advised her to use something like Premium Elastic Tubular Medical Bandage which can be cut to fit . Return to the office when you are back from vacation for a recheck Coding Level of Care Code Est Pt Level 4 (38307) Diagnoses Traumatic open wound of left lower leg, subsequent encounter S81.802D Encounter type: subsequent encounter
[2023-12-11 10:08] VITALS: BP 132/80; PULSE 69; RESP 16; TEMP 36.8; O2SAT 98
== END 2023-12-11 10:35 | disposition home or self-care (01) ==
PROVIDERS: PCP Nurse Practitioner Family; Visit Provider Nurse Practitioner Family
DX: S81.802D Unspecified open wound, left lower leg, subsequent encounter (principal)
CPT/HCPCS: 99214

== ENCOUNTER 2023-12-25 09:02 | Outpatient (AMB) | payer MEDICARE, SELFPAY ==
--- NOTE | 2023-12-25 09:05 | A.OFFPC_ITS ---
Vital Signs 12/25/23 09:10 Height 5 ft 8 in Weight 234 lb 2 oz BMI 35.6 BP 142/66 H Blood Pressure Location Lt brachial Position Sitting Respiration 16 Pulse 70 Pulse Source Pulse Oximeter Temp 97.5 F Temp Source Temporal Artery Scan Pulse Oximetry (%) 100 Oxygen Delivery Method Room Air Intake Visit Reasons: fu LLE wound, when back from vacatiom Intake Note: patient here for follow up on wound. Commission Associate Required: No Is last menstrual period known: No Post menopausal: No Patient : No Allergies No Known Allergies Allergy (Verified 12/25/23 09:08) Medication List - Last Reconciled 12/25/23 by Terese Hunter, [facility] blood pressure test kit-large As directed carvedilol 12.5 mg PO BID chlorthalidone 25 mg PO DAILY 30 days doxycycline hyclate 100 mg PO BID 7 days walker Rollator walker Tobacco use date assessed: 08/09/23 Dental Screening Dental Screen Date: 08/09/23 HPI HPI Comments History of Present Illness Details Here today for close follow up of left lower extremity traumatic wound. Just returned from vacation. Did take a few days of doxycycline while she was away as she was not sure if she should or not. She continued with the dressings as directed. She was keeping the skin clean and dry. She has an appointment with [facility]'s wound care team tomorrow at 09:00. She denies any fever, chills. Full-thickness wound to left anterior lower leg with healthy granulation tissue noted on parameter, wound bed with with some beefy red granulation tissue, mostly covered by yellow eschar. At 09:00 o'clock position of the wound there is a depressed area with yellow slough and slight dark discoloration, the wound bed is moist, there is no drainage, the surrounding skin is free from excessive warmth, erythema or signs of infection. The wound has decreased in size since onset. There is no odor.This was cleansed with normal saline, Xeroform gauze and dry clean dressing was applied at the time of visit by provider. Plan no need for add'l doxy @ this time fu with [facility] care tomorrow at 0900 consider vascular referral for lower ext edema - defer to pcp on this. [facility] Medical History (Updated 12/05/23 @ 09:41 by Terese Hunter, [facility]) CKD (chronic kidney disease), stage III Hypertension Dislocated shoulder Edema of both lower extremities Arthritis Arm fracture, left Ganglion cyst Left knee pain Surgical History History of total knee replacement Hx of wisdom tooth extraction Hx of colonoscopy Family History Father Congestive heart failure Son Leukemia Social History Household Members Other:: son age 34 Housing: House Are you a primary lawn care worker to a significant other at home: No Do you presently have visiting nurse or other home services: No Alcohol intake: current Alcohol intake frequency: holidays/special occasions only Alcohol type: beer Patient Tobacco Use Status: Never used Tobacco e-Cigarette/Vaping Use: Never Used Patient : No service: No Current occupational status: retired Cognitive needs: No Hearing needs: No Vision needs: Yes Questionnaire Thrive Questionnaire Date Thrive assessed: 08/09/23 JASON-7 AMB Questionnaire JASON-7 Date JASON - 7 assessed: 08/09/23 Source: Developed by Drs. Luis Land, Terri Russo, Derek Perry and colleagues, with an educational kishore from [employer]. Physical exam (Primary Care) Vital Signs: Last Vital Signs Temp 97.5 F 12/25/23 09:10 Pulse 70 12/25/23 09:10 Resp 16 12/25/23 09:10 BP 142/66 H 12/25/23 09:10 Pulse Ox 100 12/25/23 09:10 Oxygen Delivery Method Room Air 12/25/23 09:10 BMI result Body Mass Index 35.6 Tobacco/Smoking Status: Tobacco use Status Tobacco use date assessed 08/09/23 12/25/23 09:07 Patient Tobacco Use Status Never used Tobacco 12/25/23 09:07 e-Cigarette/Vaping Use Never Used 12/25/23 09:07 Thrive Assessment: Date of Thrive Assessment Date Thrive assessed 08/09/23 12/25/23 09:07 Assessment and Plan Assessment & Plan (1) Traumatic open wound of left lower leg: Code(s): S81.802A - Unspecified open wound, left lower leg, initial encounter Qualifiers: Encounter type: subsequent encounter Qualified Code(s): S81.802D - Unspecified open wound, left lower leg, subsequent encounter Plan This note is constructed using voice recognition software. While every effort has been made to ensure accuracy in sales product specialist, still errors may have been included Sometimes, these errors may affect the content or meaning of the given sentence . Total time spent caring for the patient today was 30 minutes. This includes time spent before the visit reviewing the chart, time spent during the visit, and time spent after the visit on documentation Patient Instructions: [phone] [place] [id number] Coding Level of Care Code Est Pt Level 4 (74853) Diagnoses Traumatic open wound of left lower leg, subsequent encounter S81.802D Encounter type: subsequent encounter
[2023-12-25 09:10] VITALS: BP 142/66; PULSE 70; RESP 16; TEMP 36.4; O2SAT 100; BMI 35.6
== END 2023-12-25 09:34 | disposition home or self-care (01) ==
PROVIDERS: PCP Nurse Practitioner Family; Visit Provider Nurse Practitioner Family
DX: S81.802D Unspecified open wound, left lower leg, subsequent encounter (principal)
CPT/HCPCS: 99214

== ENCOUNTER 2023-12-26 08:58 | Outpatient (RCR) | payer MEDICARE, SELFPAY | END 2024-01-31 10:40 | disposition home or self-care (01) | LOC: HO.WCC 08:58 | PROVIDERS: PCP Nurse Practitioner Family; Visit Provider Surgery | DX: I87.332 Chronic venous hypertension (idiopathic) with ulcer and inflammation of left lower extremity (principal); L97.822 Non-pressure chronic ulcer of other part of left lower leg with fat layer exposed; Q82.0 Hereditary lymphedema | CPT/HCPCS: 11042; 99212 ==

== ENCOUNTER 2024-06-17 11:14 | Outpatient (AMB) | payer MEDICARE, SELFPAY ==
--- NOTE | 2024-06-17 11:34 | HO.NEPHOV_ITS ---
Vital Signs 06/17/24 11:35 Height 5 ft 8 in Weight 248 lb BMI 37.7 BP 122/82 Blood Pressure Location Lt brachial Position Sitting Pulse 61 Pulse Source Pulse Oximeter Pulse Oximetry (%) 99 Oxygen Delivery Method Room Air Intake Visit Reasons: HTN/ 6 MO FU/ LVM Head Of Sales Promotion Required: No Accompanied by: Self / Same As Patient Allergies No Known Allergies Allergy (Verified 06/17/24 11:35) HPI Comments Details: April was seen in follow-up of her hypertension. She still is going through a lot of personal stressors. She does not have any orthostatic symptoms, weakness, chest pain, shortness of breath, nausea, vomiting, diarrhea. Her blood pressure has been at goal. She is ambulating well after her left knee replacement. There were no other new systemic complaints during this office visit [facility] Medical History (Updated 06/17/24 @ 11:48 by Seth Villavicencio MD) CKD (chronic kidney disease), stage III Hypertension Dislocated shoulder Edema of both lower extremities Arthritis Arm fracture, left Ganglion cyst Left knee pain Surgical History History of total knee replacement Hx of wisdom tooth extraction Hx of colonoscopy Family History Father Congestive heart failure Son Leukemia Social History Household Members Other:: son age 34 Housing: House Are you a primary tree care foreman to a significant other at home: No Do you presently have visiting nurse or other home services: No Alcohol intake: current Alcohol intake frequency: holidays/special occasions only Alcohol type: beer Patient Tobacco Use Status: Never used Tobacco e-Cigarette/Vaping Use: Never Used service: No Current occupational status: retired Cognitive needs: No Hearing needs: No Vision needs: Yes Review of Systems Const All systems reviewed & are unremarkable except as noted in HPI and below Physical Exam Vital Signs: Last Vital Signs Pulse 61 06/17/24 11:35 BP 122/82 06/17/24 11:35 Pulse Ox 99 06/17/24 11:35 Oxygen Delivery Method Room Air 06/17/24 11:35 BMI result Body Mass Index 37.7 Const General: comfortable and no acute distress Orientation/consciousness: patient oriented x3 HEENT Head: Yes normocephalic Mouth: Normal oral and palatal mucosa present Eyes EOM: EOMs intact bilaterally Neck Neck: Yes supple Resp Auscultation: clear to auscultation bilaterally Cardio Jugular venous distension: no JVD Rate: regular rate GI Palpation (GI): Soft to palpation Auscultation: normal bowel sounds General: Yes no CVA tenderness Back/Spine/Pelvis Back: no CVA tenderness Skin General skin exam: no rashes or lesions noted Neuro General: patient oriented x3 and moves all extremities Extrem General: Yes no pedal edema Assessment & Plan Assessment & Plan (1) Hypertension: Code(s): I10 - Essential (primary) hypertension Category: Medical Qualifiers: Hypertension type: essential hypertension Qualified Code(s): I10 - Essential (primary) hypertension (2) Hypercalcemia: Code(s): E83.52 - Hypercalcemia Category: Medical Plan April has longstanding hypertension. She had been on carvedilol and chlorthalidone. She has hypercalcemia most likely from Chlorthalidone. Her BP is at goal. She does not had excessive sodium in the diet. She maintains good hydration. She avoids nonsteroidal anti-inflammatories. Blood work ordered for today. I did not make any medication changes today. Follow-up appointment given Orders: Orders Calcium Today E83.52 - Hypercalcemia, I10 - Essential (primary) hypertension Creatinine 8 Months E83.52 - Hypercalcemia, I10 - Essential (primary) hypertension Blood Urea Nitrogen 8 Months E83.52 - Hypercalcemia, I10 - Essential (primary) hypertension Creatinine Today E83.52 - Hypercalcemia, I10 - Essential (primary) hypertension Blood Urea Nitrogen Today E83.52 - Hypercalcemia, I10 - Essential (primary) hypertension Electrolytes Today E83.52 - Hypercalcemia, I10 - Essential (primary) hypertension Electrolytes 8 Months E83.52 - Hypercalcemia, I10 - Essential (primary) hypertension Calcium 8 Months E83.52 - Hypercalcemia, I10 - Essential (primary) hypertension Medications: Changed From chlorthalidone 25 mg PO DAILY 30 days 30 tabs 6RF To chlorthalidone 25 mg PO DAILY 90 days 90 tabs 4RF Refilled carvedilol 12.5 mg PO BID 90 days 180 tabs 4RF Coding Level of Care Code Est Pt Level 4 (45849) Diagnoses Essential hypertension I10 Hypertension type: essential hypertension Hypercalcemia E83.52
[2024-06-17 11:35] VITALS: BP 122/82; PULSE 61; O2SAT 99; BMI 37.7
== END 2024-06-17 11:55 | disposition home or self-care (01) ==
PROVIDERS: PCP Hospitalist; Visit Provider Internal Medicine Nephrology
DX: I10 Essential (primary) hypertension (principal); E83.52 Hypercalcemia
CPT/HCPCS: 99214

== ENCOUNTER 2024-06-17 12:10 | Outpatient (REF) | payer MEDICARE, SELFPAY ==
[2024-06-17 13:09] LABS: Anion Gap 13 (12-20); Blood Urea Nitrogen 24 mg/dL (9-16); Carbon Dioxide 30 mmol/L (22-29); Chloride 103 mmol/L (96-108); Potassium 3.5 mmol/L (3.3-5.1); Sodium 142 mmol/L (135-145)
[2024-06-17 13:10] LABS: Calcium 10.2 mg/dL (8.4-10.2); Estimated Glomerular Filt Rate > 60
== END 2024-06-17 12:11 | disposition home or self-care (01) ==
LOC: HO.10HDL 12:10
PROVIDERS: Visit Provider Internal Medicine Nephrology
DX: E83.52 Hypercalcemia (principal); I10 Essential (primary) hypertension
CPT/HCPCS: 36415; 80051; 82310; 82565; 84520; 99212

== ENCOUNTER 2025-03-17 10:00 | Outpatient (REF) | payer MEDICARE, SELFPAY ==
[2025-03-17 12:28] LABS: Anion Gap 9 (12-20); Blood Urea Nitrogen 24 mg/dL (9-16); Calcium 10.3 mg/dL (8.4-10.2); Carbon Dioxide 33 mmol/L (22-29); Chloride 103 mmol/L (96-108); Estimated Glomerular Filt Rate > 60; Potassium 3.3 mmol/L (3.3-5.1); Sodium 142 mmol/L (135-145)
== END 2025-03-17 10:01 | disposition home or self-care (01) ==
LOC: HO.10HDL 10:00
PROVIDERS: Visit Provider Internal Medicine Nephrology
DX: E83.52 Hypercalcemia (principal); I10 Essential (primary) hypertension
CPT/HCPCS: 36415; 80051; 82310; 82565; 84520

== ENCOUNTER 2025-05-26 13:36 | Outpatient (AMB) | payer MEDICARE, SELFPAY ==
--- NOTE | 2025-05-26 14:02 | HO.NEPHOV ---
Vital Signs 05/26/25 14:05 Height 5 ft 8 in Weight 265 lb 2 oz BMI 40.3 BP 130/80 Blood Pressure Location Lt brachial Position Sitting Pulse 74 Pulse Source Pulse Oximeter Pulse Oximetry (%) 99 Oxygen Delivery Method Room Air Intake Visit Reasons: 8 mnts-Conf [employer] Supervisor Required: No Accompanied by: Self / Same As Patient Allergies No Known Allergies Allergy (Verified 05/26/25 14:04) HPI Comments Details: April was seen in follow-up of her hypertension. She does not have any orthostatic symptoms, weakness, chest pain, shortness of breath, nausea, vomiting, diarrhea. Her blood pressure has been at goal. She is ambulating well after her left knee replacement. There were no other new systemic complaints during this office visit [facility] Medical History (Updated 06/17/24 @ 11:48 by Seth Villavicencio MD) CKD (chronic kidney disease), stage III Hypertension Dislocated shoulder Edema of both lower extremities Arthritis Arm fracture, left Ganglion cyst Left knee pain Surgical History History of total knee replacement Hx of wisdom tooth extraction Hx of colonoscopy Family History Father Congestive heart failure Son Leukemia Social History Household Members Other:: son age 34 Housing: House Are you a primary palliative care specialist to a significant other at home: No Do you presently have visiting nurse or other home services: No Alcohol intake: current Alcohol intake frequency: holidays/special occasions only Alcohol type: beer Patient Tobacco Use Status: Never used Tobacco e-Cigarette/Vaping Use: Never Used service: No Current occupational status: retired Cognitive needs: No Hearing needs: No Vision needs: Yes Review of Systems Const All systems reviewed & are unremarkable except as noted in HPI and below Physical Exam Const General: comfortable and no acute distress Orientation/consciousness: patient oriented x3 HEENT Head: Yes normocephalic Mouth: Normal oral and palatal mucosa present Eyes EOM: EOMs intact bilaterally Neck Neck: Yes supple Resp Auscultation: clear to auscultation bilaterally Cardio Jugular venous distension: no JVD Rate: regular rate GI Palpation (GI): Soft to palpation Auscultation: normal bowel sounds General: Yes no CVA tenderness Back/Spine/Pelvis Back: no CVA tenderness Skin General skin exam: no rashes or lesions noted Neuro General: patient oriented x3 and moves all extremities Extrem General: Yes no pedal edema Results Reviewed Nephrology Results: Sodium, (135-145) 142 mmol/L 03/17/25 Potassium, (3.3-5.1) 3.3 mmol/L 03/17/25 Chloride, (96-108) 103 mmol/L 03/17/25 Carbon Dioxide, (22-29) 33 mmol/L H 03/17/25 BUN, (9-16) 24 mg/dL H 03/17/25 Creatinine, (0.5-1.4) 0.80 mg/dL 03/17/25 Calcium, (8.4-10.2) 10.3 mg/dL H 03/17/25 Assessment & Plan Assessment & Plan (1) Hypertension: Code(s): I10 - Essential (primary) hypertension Category: Medical Qualifiers: Hypertension type: essential hypertension Qualified Code(s): I10 - Essential (primary) hypertension Plan April has longstanding hypertension. She had been on carvedilol and chlorthalidone. She has hypercalcemia most likely from Chlorthalidone. Her BP is at goal. She does not had excessive sodium in the diet. She maintains good hydration. She avoids nonsteroidal anti-inflammatories. I did not make any medication changes today. Follow-up appointment given Orders: Orders Calcium 6 Months I10 - Essential (primary) hypertension Blood Urea Nitrogen 6 Months I10 - Essential (primary) hypertension Creatinine 6 Months I10 - Essential (primary) hypertension Electrolytes 6 Months I10 - Essential (primary) hypertension Electrolytes 3 Months I10 - Essential (primary) hypertension Blood Urea Nitrogen 3 Months I10 - Essential (primary) hypertension Creatinine 3 Months I10 - Essential (primary) hypertension Coding Level of Care Code Est Pt Level 4 (24953) Diagnoses Essential hypertension I10 Hypertension type: essential hypertension
[2025-05-26 14:05] VITALS: BP 130/80; PULSE 74; O2SAT 99; BMI 40.3
--- OUTSIDE RECORDS SUMMARY | 2025-05-26 18:10 | XMS_ITS ---
Author Organization Unknown ENCOUNTERS Encounter Performer Location Date Diagnosis Diagnosis Status Inpatient [address] [address] [id number] [facility] Pre Admit [address] [address] [id number] *Note: Encounters from your own facility or health system may be excluded. Allergies, Adverse Reactions, Alerts Allergen Type Severity Identification Date Medications Name Date Quantity Days Supplied GPI Number
== END 2025-05-26 14:25 | disposition home or self-care (01) ==
LOC: HO.HKA 13:37
PROVIDERS: PCP Hospitalist; Visit Provider Internal Medicine Nephrology
DX: I10 Essential (primary) hypertension (principal)
CPT/HCPCS: 99214

== ENCOUNTER → 2025-05-26 13:36 | Outpatient (BNVA) | payer MEDICARE, SELFPAY | PROVIDERS: PCP Hospitalist; Visit Provider Internal Medicine Nephrology | DX: I10 Essential (primary) hypertension (principal); E83.52 Hypercalcemia | CPT/HCPCS: 99212 ==